=== PATIENT | male | born 1975 | race Caucasian/White ===

== ENCOUNTER → 2017-09-04 18:20 | Outpatient (CLI) | payer MEDICAID, SELFPAY ==
[2017-09-04 19:14] LABS: Hematocrit 41.7 % (40-54); Hemoglobin 14.1 g/dl (13.0-16.5); Mean Corp Hgb Conc 33.8 g/gl (32-36); Mean Corpuscular Hgb 32.4 pg (27.0-32.0); Mean Corpuscular Volume 95.9 fL (80-94); Platelet Count 210 K/mm3 (150-450); RBC Distribution Width CV 12.6 % (11.6-14.6); RBC Distribution Width SD 44.2 fl (35.1-43.9); Red Blood Count 4.35 M/mm3 (4.6-6.2); Scan Indicated on CBC? Y/N NO; White Blood Count 8.3 K/mm3 (4.4-11.0)
[2017-09-04 19:43] LABS: ALB/GLOB Ratio 1.2 RATIO (0.9-2.4); AST(SGOT) 26 U/L (15-37); Alanine Aminotransfer ALT/SGPT 50 U/L (16-61); Albumin, Serum 3.6 g/dL (3.2-5.0); Alkaline Phosphatase 103 U/L (45-117); Anion Gap 7 (5-15); BUN 19 mg/dL (7-18); BUN/Creat Ratio 17.6 RATIO (10-20); Calcium,Total 8.9 mg/dL (8.5-10.1); Chloride 110 mmol/L (98-107); Creatinine, Serum 1.08 mg/dL (0.70-1.30); EST Glomerular Filtration Rate 81 mL/min (>60); Est Glom Filt Rate - Afr Amer 98 mL/min (>60); Glucose 86 mg/dL (70-110); Potassium 3.9 mmol/L (3.5-5.1); Protein, Total 6.6 g/dL (6.4-8.2); Sodium Level 147 mmol/L (136-145); T4 Free Direct 0.71 ng/dL (0.76-1.46); Thyroid Stim Hormone (TSH) 2.61 uIU/mL (0.358-3.74)
== END ==
PROVIDERS: Family Provider Family Medicine Geriatric Medicine; PCP Family Medicine Geriatric Medicine; Visit Provider Psychiatry & Neurology Child & Adolescent Psychiatry
DX: F31.9 Bipolar disorder, unspecified (principal); F41.9 Anxiety disorder, unspecified
CPT/HCPCS: 36415; 80053; 80178; 84439; 84443; 85027

== ENCOUNTER → 2018-01-28 09:02 | Outpatient (CLI) | payer MEDICAID, SELFPAY ==
[2018-01-28 11:19] LABS: Absolute Lymphocyte Count 1.66 X10^3/ul (0.83-4.51); Absolute Neutrophil Count 6.3 X10^3/uL (2.0-7.7); Basophil# 0.02 X10^3/uL; Basophil% 0.2 % (0-1); Eosinophil# 0.21 X10^3/uL; Eosinophils% 2.4 % (0-5); Hematocrit 43.6 % (40-54); Hemoglobin 15.1 g/dl (13.0-16.5); Lymphocyte # 1.66 X10^3/ul (4.0); Lymphocyte % 18.6 % (19-41); Mean Corp Hgb Conc 34.6 g/gl (32-36); Mean Corpuscular Hgb 31.9 pg (27.0-32.0); Mean Corpuscular Volume 92.2 fL (80-94); Monocyte# 0.74 X10^3/uL; Monocyte% 8.3 % (0-10); Neutrophil # 6.29 X10^3/uL (2.7-7.7); Neutrophil % 70.4 % (47-70); Platelet Count 236 K/mm3 (150-450); RBC Distribution Width CV 12.3 % (11.6-14.6); RBC Distribution Width SD 41.1 fl (35.1-43.9); Red Blood Count 4.73 M/mm3 (4.6-6.2); White Blood Count 8.9 K/mm3 (4.4-11.0)
[2018-01-28 11:20] LABS: POSITIVE COUNT NO; POSITIVE DIFFERENTIAL NO; POSITIVE MORPHOLOGY NO
[2018-01-28 11:49] LABS: Vitamin D,25 Hydroxy 24.2 ng/mL (29.95-100.01)
[2018-01-28 11:50] LABS: ALB/GLOB Ratio 1.1 RATIO (0.9-2.4); AST(SGOT) 21 U/L (15-37); Alanine Aminotransfer ALT/SGPT 41 U/L (16-61); Albumin, Serum 3.7 g/dL (3.2-5.0); Alkaline Phosphatase 121 U/L (45-117); Anion Gap 8 (5-15); BUN 18 mg/dL (7-18); BUN/Creat Ratio 17.5 RATIO (10-20); Calcium,Total 9.1 mg/dL (8.5-10.1); Chloride 105 mmol/L (98-107); Cholesterol 188 mg/dL (200); Creatinine, Serum 1.03 mg/dL (0.70-1.30); EST Glomerular Filtration Rate 85 mL/min (>60); Est Glom Filt Rate - Afr Amer 103 mL/min (>60); Globulin 3.5 g/dL (2.2-4.2); Glucose 91 mg/dL (74-106); High Density Lipoprotein 56 mg/dL; Protein, Total 7.2 g/dL (6.4-8.2); Sodium Level 138 mmol/L (136-145); Thyroid Stim Hormone (TSH) 2.91 uIU/mL (0.358-3.74); Triglycerides 203 mg/dL; Very Low Density Lipoprotein 41 mg/dL (5-40)
== END ==
LOC: POLAB3 09:03 → LAB 10:28
PROVIDERS: Family Provider Family Medicine Geriatric Medicine; PCP Family Medicine Geriatric Medicine; Visit Provider Family Medicine Geriatric Medicine
DX: R53.83 Other fatigue (principal); E55.9 Vitamin D deficiency, unspecified
CPT/HCPCS: 36415; 80053; 80061; 82306; 84443; 85025

== ENCOUNTER → 2018-03-30 10:34 | Outpatient (CLI) | payer MEDICAID, SELFPAY ==
[2018-03-30 13:36] LABS: Hematocrit 45.9 % (40-54); Hemoglobin 15.6 g/dl (13.0-16.5); Mean Corpuscular Hgb 32.2 pg (27.0-32.0); Mean Corpuscular Volume 94.6 fL (80-94); Mean Platelet Vol. 10.4 fl (6.2-12.0); Platelet Count 267 K/mm3 (150-450); RBC Distribution Width CV 12.9 % (11.6-14.6); RBC Distribution Width SD 43.6 fl (35.1-43.9); Red Blood Count 4.85 M/mm3 (4.6-6.2); White Blood Count 8.4 K/mm3 (4.4-11.0)
[2018-03-30 13:38] LABS: Scan Indicated on CBC? Y/N NO
[2018-03-30 13:58] LABS: ALB/GLOB Ratio 1.2 RATIO (0.9-2.4); AST(SGOT) 20 U/L (15-37); Alanine Aminotransfer ALT/SGPT 45 U/L (16-61); Albumin, Serum 4.1 g/dL (3.2-5.0); Alkaline Phosphatase 132 U/L (45-117); Anion Gap 11 (5-15); BUN 15 mg/dL (7-18); BUN/Creat Ratio 12.4 RATIO (10-20); Calcium,Total 9.7 mg/dL (8.5-10.1); Chloride 113 mmol/L (98-107); Creatinine, Serum 1.21 mg/dL (0.70-1.30); EST Glomerular Filtration Rate 71 mL/min (>60); Est Glom Filt Rate - Afr Amer 85 mL/min (>60); Globulin 3.4 g/dL (2.2-4.2); Glucose 82 mg/dL (74-106); Potassium 4.2 mmol/L (3.5-5.1); Protein, Total 7.5 g/dL (6.4-8.2); Sodium Level 151 mmol/L (136-145)
== END ==
PROVIDERS: Family Provider Family Medicine Geriatric Medicine; PCP Family Medicine Geriatric Medicine; Visit Provider Family Medicine Geriatric Medicine
DX: Z51.81 Encounter for therapeutic drug level monitoring (principal); F31.9 Bipolar disorder, unspecified
CPT/HCPCS: 36415; 80053; 80178; 85027

== ENCOUNTER → 2018-04-02 12:27 | Outpatient (CLI) | payer MEDICAID, SELFPAY ==
[2018-04-02 17:56] LABS: Anion Gap 8 (5-15); BUN 14 mg/dL (7-18); BUN/Creat Ratio 12.7 RATIO (10-20); Calcium,Total 9.3 mg/dL (8.5-10.1); Chloride 107 mmol/L (98-107); EST Glomerular Filtration Rate 79 mL/min (>60); Est Glom Filt Rate - Afr Amer 95 mL/min (>60); Glucose 75 mg/dL (74-106); Potassium 4.3 mmol/L (3.5-5.1); Sodium Level 141 mmol/L (136-145)
[2018-04-02 18:27] LABS: Urine Sodium 24 mmol/L (Not Establ.)
[2018-04-02 19:31] LABS: Osmolality, Serum 298 mOsm/KG (275-295)
[2018-04-02 20:19] LABS: Osmolality, Urine 161 mOsm/KG
== END ==
PROVIDERS: Family Provider Family Medicine Geriatric Medicine; PCP Family Medicine Geriatric Medicine; Visit Provider Family Medicine Geriatric Medicine
DX: E87.0 Hyperosmolality and hypernatremia (principal)
CPT/HCPCS: 36415; 80048; 83930; 83935; 84300

== ENCOUNTER 2018-07-26 08:27 | Emergency (ER) | payer MEDICAID, SELFPAY ==
[2018-07-26 08:28] VITALS: BP 126/94; PULSE 101; RESP 15; TEMP 37; O2SAT 97; BMI 19.7
--- NOTE | 2018-07-26 08:52 | ED.VISSUMM ---
- ER Visit Summary Date of Service: 07/26/18 Chief Complaint: [] Seizure x2 today History of Present Illness: The patient is a 42 M [] history of seizure disorder, mental retardation autism mental function at third grade level per family, he had a seizure at the residential that consisted of jerking episodes, that abated with a very short period of time per medics were called he was back to baseline, family was called he was taken home and at home per the father had another episode where he had whole body shaking typical of his usual seizures he did not fall or injure himself again this lasted for a very brief period time 1 or 2 minutes he was brought to the hospital, Due to his mental capabilities he is unable to verbalize any complaints he has not been ill in any way he has had no fever no cough no trauma no obvious change in any of his status all the meds are the same he is currently on Dilantin which has been on for some time his levels been therapeutic he is missed no doses, he had a prior extensive workup for the seizures with neurology including multiple brain scans lab test etc. he seen by Dr. Griffith and Dr. Lazcano of neurology Physical Examination: [] Afebrile 130/80 resting currently in the bed General, no distress resting comfortably he is nonverbal he is looking about he is in no distress HEENT is generally unremarkable The neck is supple no adenopathy Cardiovascular, regular rate and rhythm Lungs, clear bilateral Abdomen, soft nontender Extremities, no clubbing cyanosis or edema Neurologic, awake alert appropriately moving all 4 extremities, per the family he is at his baseline general health status and neurologic status Patient's lab studies reveal white count of 14,000, chemistry and UA unremarkable except creatinine slightly elevated 1.4 he has received IV fluids, chest x-ray per radiology shows what appears to be a very subtle infiltrate right base see that report Discussed the case with Dr. Duque, and the family, the family are comfortable taking him home I discussed the process of treat him with oral antibiotics, potentially using rectal Valium per Dr. wells's instructions and following up with the office and they agreed and would prefer to take him home for outpatient management he was given the first dose of Levaquin here in the department he will continue all his other outpatient management return for change in symptoms Test Results: [] Is not they will use a rectal Valium on a as needed basis should he have seizures Emergency Department Course and Treatment: [] Reevaluation is resting comfortably in the bed drinking sitting up no distress Treatment Plan: [] Disposition: [] Home stable Impression: [] Recurrent seizure with history of seizure disorder, right lower lobe pneumonia, history of mental retardation This note was generated with [facility] dictation software. It may contain incorrect words, spelling, and punctuation that were not noted in review of the chart prior to signing ED Disposition - Plan for ED Patient: Chief Complaint: Seizure Referrals: Herbie Rucker Chi, MD [Primary Care Provider] -
--- NOTE | 2018-07-26 09:30 | ED.RN ---
FULL BODY SEIZURE NOTED APPROX 30 SEC. SAFETY MAINTAINED. FAMILY AND CAREGIVER AT BEDSIDE. PT AGITATED POST SEIZURE. DR ZAVALA NOTIFIED. ATIVAN GIVEN POST IV INSERTION.
[2018-07-26] MEDS: LORazepam 2 MG/ML Syringe IV (09:32)
[2018-07-26 09:37] VITALS: PULSE 104; RESP 18; O2SAT 99
[2018-07-26 09:42] LABS: Absolute Lymphocyte Count 1.69 X10^3/ul (0.83-4.51); Absolute Neutrophil Count 10.7 X10^3/uL (2.0-7.7); Basophil# 0.03 X10^3/uL; Basophil% 0.2 % (0-1); Eosinophil# 0.21 X10^3/uL; Eosinophils% 1.5 % (0-5); Hematocrit 42.4 % (40-54); Hemoglobin 14.6 g/dl (13.0-16.5); Lymphocyte # 1.69 X10^3/ul (4.0); Lymphocyte % 12.1 % (19-41); Mean Corp Hgb Conc 34.4 g/gl (32-36); Mean Platelet Vol. 9.7 fl (6.2-12.0); Monocyte# 1.39 X10^3/uL; Monocyte% 9.9 % (0-10); Neutrophil # 10.68 X10^3/uL (2.7-7.7); Neutrophil % 76.2 % (47-70); POSITIVE COUNT NO; POSITIVE DIFFERENTIAL NO; POSITIVE MORPHOLOGY NO; Platelet Count 226 K/mm3 (150-450); RBC Distribution Width CV 12.7 % (11.6-14.6); RBC Distribution Width SD 43.3 fl (35.1-43.9); Red Blood Count 4.56 M/mm3 (4.6-6.2)
[2018-07-26 10:02] LABS: Anion Gap 15 (5-15); BUN 13 mg/dL (7-18); BUN/Creat Ratio 9.6 RATIO (10-20); Calcium,Total 9.4 mg/dL (8.5-10.1); Chloride 107 mmol/L (98-107); Creatinine, Serum 1.36 mg/dL (0.70-1.30); EST Glomerular Filtration Rate 62 mL/min (>60); Est Glom Filt Rate - Afr Amer 74 mL/min (>60); Estimated Creatinine Clearance 58.37 ml/min; Glucose 114 mg/dL (74-106); Potassium 3.6 mmol/L (3.5-5.1); Sodium Level 143 mmol/L (136-145)
[2018-07-26 10:04] LABS: Phenytoin (Dilantin) Level 13.2 mL (10.0-20.0)
--- NOTE | 2018-07-26 10:30 | RAD_ITS ---
STUDY: X-RAY CHEST REASON FOR EXAM: Male, 42 years old. Shortness of breath, seizure TECHNIQUE: AP COMPARISON: None. FINDINGS: Parenchymal opacity in the right lung base is asymmetric to the left side. Lungs are generally hypoinflated. There is no demonstrated pleural abnormality. Normal size heart. Normal mediastinum and danii. Normal visualized pulmonary arteries. Normal visualized aortic arch and descending thoracic aorta. No acute bony process. There is no demonstrated abnormality of the visualized soft tissue structures of the upper abdomen. RAD/Chest 1 View (Portable) IMPRESSION: Right lung base parenchymal opacity could represent atelectasis versus pneumonia, including aspiration type. No cavitating process demonstrated, however. Electronically Signed: Olivier Freitas MD at 10:53 EST , Service support ,
[2018-07-26 11:03] VITALS: PULSE 102; RESP 14; O2SAT 97
[2018-07-26 11:03] LABS: Bacteria 0 SEEN /hpf (None Seen); Mucous, Urine 0 SEEN /hpf (<or=2+); Red Blood Cells-Urine 0 SEEN /hpf (0-5); Squamous Epithelial Cells - UA 0 SEEN /hpf (0-5); White Blood Cells 0 SEEN /hpf (0-5)
[2018-07-26] MEDS: 0.9% Normal Saline 1,000 ML 999 ML IV (11:03)
[2018-07-26 11:09] LABS: Color, Urine Straw (Yellow); Glucose, Dipstick Normal (Normal); Ketone-Dipstick Negative (Negative); Leukocyte Esterase-Dipstick Negative /ul (Negative); Nitrite-Dipstick Negative (Negative); Occult Blood-Urine Negative /ul (Negative); Protein-Dipstick Negative (Negative); Specific Gravity, Urine 1.005 (1.002-1.030); Urine Bilirubin Dipstick Negative (Negative); Urine Clarity Clear (Clear); Urine Urobilinogen Normal (Normal)
[2018-07-26 11:55] VITALS: PULSE 93; RESP 12; O2SAT 97
--- NOTE | 2018-07-26 11:58 | ED.DEP ---
ED Disposition - Plan for ED Patient: Chief Complaint: Seizure Instructions: Pneumonia Treatment, ED Seizure Recurrent Prescriptions: Diazepam [Valium] 5 mg RECTALLY PRN PRN #10 tab PRN Reason: Seizure Levofloxacin 750 mg PO DAILY #10 tab Referrals: Herbie Rucker Chi, MD [Primary Care Provider] -
[2018-07-26] MEDS: levoFLOXacin 750 MG Tablet PO (12:16)
[2018-07-26 12:21] VITALS: BP 142/108; PULSE 112; RESP 18; O2SAT 97
--- NOTE | 2018-07-26 12:22 | ED.RN ---
REVIEWED D/C INSTRUCTIONS, FOLLOW UP CARE, PRESCRIPTIONS, AND S/S THAT WOULD WARRANT A RETURN TO THE ED WITH PT GUARDIAN AND FAMILY. BOTH VERBALIZED AN UNDERSTANDING AND DENY FURTHER QUESTIONS FOR THIS RN. PT SKIN P/W/D, RESP EVEN AND UNLABORED, PT BEHAVIOR AT BASELINE, NO DISTRESS NOTED. PT AMBULATED OUT OF ED, GAIT STEADY.
== END 2018-07-26 12:23 | disposition home or self-care (01) ==
LOC: ED 09:26
PROVIDERS: Emergency Provider Emergency Medicine; Family Provider Family Medicine Geriatric Medicine; PCP Family Medicine Geriatric Medicine
DX: G40.909 Epilepsy, unspecified, not intractable, without status epilepticus (principal); J18.9 Pneumonia, unspecified organism; F79 Unspecified intellectual disabilities; F84.0 Autistic disorder
CPT/HCPCS: 71045; 80048; 80185; 81001; 85025; 93005; 96361; 96365; 96375; 99285; J7030; J7050; A4216

== ENCOUNTER → 2018-08-20 13:03 | Outpatient (CLI) | payer MEDICAID, SELFPAY ==
[2018-07-26 08:28] VITALS: BMI 19.7
--- NOTE | 2018-08-20 13:00 | SP.MBSS_ITS ---
PRIMARY / SECONDARY DIAGNOSIS: Dysphagia REFERRING PHYSICIAN: Dr. Rucker CURRENT DIET: regular textures cut into bite-size pieces/thin liquids DENTITION: present MENTAL STATUS: profound mental retardation, able to participate sufficiently w/ encouragement RESPIRATORY STATUS: oxygenating on room air PREVIOUS MODIFIED BARIUM SWALLOW STUDY: n/a REASON FOR REFERRAL: Parents report that the patient was brought to the ED in July 2018 d/t seizure disorder and a chest x-ray showed possible pneumonia in his right lung base. Parents/caregiver report that the patient ?chugs and shovels? his food and drinks w/ insufficient chewing at times, but deny any regular coughing/choking or history of pneumonia or unexplained weight loss. MEDICAL HISTORY: profound mental retardation, hypokalemia, hyponatremia, seizure disorder; patient was accompanied by his mother/father & caregiver who served as primary informants STUDY FINDINGS: Patient participated in a Modified Barium Swallow (MBS) study on 08/20/2018. Dr. Crouch was the radiologist present for this evaluation. This study was recorded in the lateral view and images were sent to PACs for storage. The following consistencies were presented to this patient for analysis of oropharyngeal swallow function: thin liquid, nectar thickened liquid, pudding, and a regular texture Angelina Doone shortbread cookie. Results of the MBS are as follows: PENETRATION / ASPIRATION SCALE (ARITA): 1 = does not enter airway 2 = enters airway/above vocal folds/ejected 3 = enters airway/above vocal folds/not ejected 4 = enters airway/contacts vocal folds/ejected 5 = enters airway/contacts vocal folds/not ejected 6 = enters airway/below vocal folds/ejected 7 = enters airway/below vocal folds/not ejected despite effort 8 = enters airway/below vocal folds/no effort PENETRATION / ASPIRATION SCALE (SCORE): 1. Thin liquid, sequential swallows via cup: 5 = enters airway/contacts vocal folds/not ejected 2. [place] thickened liquid, sequential swallows via cup: 1 = does not enter airway 3. Puddin = does not enter airway 4. ? Angelina Doone shortbread cookie: 1 = does not enter airway 5. Thin liquid, sequential swallows via straw: 1 = does not enter airway 6. Thin liquid, sequential swallows via straw: 1 = does not enter airway IMPRESSION ORAL PHASE CHARACTERIZED BY: LABIAL SEAL: could not view d/t forward leaning positioning of patient TONGUE CONTROL DURING BOLUS MANIPULATION: posterior escape of greater than half of bolus BOLUS PREPARATION / MASTICATION: disorganized chewing/mashing with solid pieces of bolus unchewed BOLUS TRANSPORT / LINGUAL MOTION: brisk tongue motion ORAL RESIDUE: residue collection on oral structures PHARYNGEAL PHASE CHARACTERIZED BY: INITIATION OF PHARYNGEAL SWALLOW: bolus head in pyriforms at first hyoid excursion SOFT PALATE ELEVATION: no bolus between soft palate and pharyngeal wall LARYNGEAL ELEVATION: complete superior movement of thyroid cartilage with complete approximation of arytenoids cartilage to epiglottic petiole ANTERIOR HYOID EXCURSION: partial anterior movement EPIGLOTTIC MOVEMENT: complete epiglottic inversion LARYNGEAL VESTIBULE CLOSURE AT HEIGHT OF SWALLOW: incomplete laryngeal vestibule closure with narrow column of air/contrast in laryngeal vestibule PHARYNGEAL STRIPPING WAVE: pharyngeal stripping wave present / diminished PHARYNGOESOPHAGEAL SEGMENT OPENING: complete distension and complete duration with no obstruction of flow TONGUE BASE RETRACTION: narrow column of contrast between tongue base and posterior pharyngeal wall PHARYNGEAL RESIDUE: collection of residue within or on pharyngeal structures ESOPHAGEAL PHASE CHARACTERIZED BY: ESOPHAGEAL BOLUS CLEARANCE IN THE UPRIGHT POSITION: complete clearance; esophageal coating EFFECTS OF TREATMENT STRATEGIES ATTEMPTED: Reduced rate of intake = attempted; not able to implement Use of straw = effective Cued cough = attempted; not able to implement INTERPRETATION OF RESULTS: Patient presents with moderate oropharyngeal dysphagia (R13.12). Oral phase primarily marked by mastication inefficiency (munching pattern w/ insufficient mastication time) and suboptimal lingual control w/ premature pharyngeal bolus entry. Pharyngeal phase primarily marked by delayed pharyngeal swallow onset timing resulting in suboptimal bolus location upon swallow onset. Pt utilized large volume sequential swallow consumption w/ thin liquid w/ spillage to the pyriform sinuses prior to swallow onset and subsequent laryngeal vestibule penetration to the vocal folds during the swallow without complete ejection from the laryngeal vestibule. Attempted cued cough to expel contrast unsuccessfully w/ patient stating ?cough? although unable to initiate. Mild oral residue retention post deglutition appreciated, although was able to clear w/ spontaneously initiated additional swallow. Reduced pharyngeal motility w/ residue retention w/in the valleculae/pyriforms noted d/t reduced anterior hyoid excursion w/ diminished pharyngeal stripping wave. Use a straw for thin liquid consumption was effective to ameliorate laryngeal vestibule penetration of thin liquids. RECOMMENDATIONS DIET: mechanical soft textures (finely chopped)/thin liquids COMPENSATORY STRATEGIES RECOMMENDED: Supervision w/ all PO intake, all liquids by straw (avoid large bore straws), seated upright during PO intake NEED FOR CONTINUED THERAPY: The Patient has demonstrated significant difficulty following direction with very limited benefit for extensive implementation of compensatory strategies. Patient would not benefit from direct skilled speech therapy services targeting dysphagia. Education was provided to both parents and caregiver following MBS completed w/ provision of written reinforcement of recommendations. Anticipate need for a repeat MBS w/ diet texture/liquid consistency modification if increased s/s aspiration/pneumonia are present. ADDITIONAL COMMENTS/RECOMMENDATIONS: Results and recommendations were discussed with the Patient?s parents/caregiver and images were reviewed to improve comprehension of deficits identified and need for implementation of recommended aspiration precautions immediately following MBS completion, with parents and caregiver all verbalizing understanding and agreement with all recommendations and education provided. IMAGE COUNT: [id number] Ellen Pollock M.A. CCC-DISPATCHER CH[employer]IL [address] [address] [email or web address] [phone]
--- NOTE | 2018-08-20 13:06 | RAD_ITS ---
STUDY: SWALLOWING STUDY REASON FOR EXAM: Male, 42 years old. Dysphagia. TECHNIQUE: The examination was performed with Speech Pathology in attendance. Under fluoroscopic observation, the patient ingested thin barium, thick barium, barium pudding, and barium coated cracker. FLUOROSCOPY TIME: 1:38 minutes/seconds. [id number] images were obtained. RADIOLOGIST INVOLVEMENT: Radiologist was present and providing direct supervision. COMPARISON: None. FINDINGS: The following was observed during swallowing of the various mixtures of barium: Thin Barium: Transient penetration with ingestion of thin liquids. This improves with the use of the straw. Thick Barium: There was no evidence of aspiration or laryngeal penetration. Barium Pudding: There was no evidence of aspiration or laryngeal penetration. Barium Coated Cracker: There was no evidence of aspiration or laryngeal penetration. RAD/Swallowing Function w/Video IMPRESSION: Transient penetration with ingestion of thin liquids. This improves with the use of the straw. The swallow study findings were discussed with the patient by the speech pathologist at the conclusion of the examination. Please see speech pathology report for more information and recommendations. Electronically Signed: Barrington Crouch MD at 13:45 EST Tel [phone], Service support ,
--- OUTSIDE RECORDS SUMMARY | 2018-10-25 05:58 | XMS RPT_ITS ---
:1975 Author Organization [facility] Care Team Providers Name Role Phone Chaim, Herbie Chi Primary Care Unavailable Margot Zuniga Attending Unavailable Chaim, Herbie Chi Attending Unavailable Chaim, Herbie Chi Referring Unavailable Chaim, Herbie Chi Primary Care Unavailable Chaim, Herbie Chi Primary Care Unavailable Lida Main Attending Unavailable Chaim, Herbie Chi Attending Unavailable Chaim, Herbie Chi Primary Care Unavailable Chaim, Herbie Chi Referring Unavailable Chaim, Herbie Chi Attending Unavailable Chaim, Herbie Chi Primary Care Unavailable Chaim, Herbie Chi Attending Unavailable Chaim, Herbie Chi Primary Care Unavailable PROBLEMS PROBLEMS DATE TYPE CONDITION / CODE ATTENDING STATUS SOURCE 07/26/2018 Unknown F44.5 - Jwayyed, Active [facility] disorder with Hospital seizures or Repository convulsions / F44.5(ICD-10) 03/30/2018 Unknown F31.9 - Bipolar Chaim, Herbie Chi Active [place] disorder, Community unspecified / Hospital F31.9(ICD-10) Repository 03/30/2018 Unknown Z51.81 - Chaim, Herbie Chi Active [facility] Encounter for Community therapeutic drug Hospital level monitoring Repository / Z51.81(ICD-10) 01/28/2018 Unknown E55.9 - Vitamin D Chaim, Herbie Chi Active [facility] deficiency, Community unspecified / Hospital E55.9(ICD-10) Repository 01/28/2018 Unknown R53.83 - Other Chaim, Herbie Chi Active [place] fatigue / Community R53.83(ICD-10) Hospital Repository 09/05/2017 Unknown F41.9 - Anxiety Solaro, Lida Active [place] disorder, Community unspecified / Hospital F41.9(ICD-10) Repository PROCEDURES PROCEDURES No Procedure Records FoundRESULTS RESULTS MODIFIED BARIUM Observed: 08/20/2018 Status: F Source: ESKO SWALLOW STUDY 3:20 PM [facility] HOSPITAL REPOSITORY [facility] Speech Pathology [address] [place] [address] Modified Barium Swallow Study MR#: [id number] Acct: [id number] Name: EDIN PRYOR Rep #: [id number] : 1975 42 From: Ellen Pollock M.A. CCC-ACCOUNTS OFFICER PRIMARY / SECONDARY DIAGNOSIS: Dysphagia REFERRING PHYSICIAN: Dr. Rucker CURRENT DIET: regular textures cut into bite-size pieces/thin liquids DENTITION: present MENTAL STATUS: profound mental retardation, able to participate sufficiently w/ encouragement RESPIRATORY STATUS: oxygenating on room air PREVIOUS MODIFIED BARIUM SWALLOW STUDY: n/a REASON FOR REFERRAL: Parents report that the patient was brought to the ED in July 2018 d/t seizure disorder and a chest x-ray showed possible pneumonia in his right lung base. Parents/caregiver report that the patient chugs and shovels his food and drinks w/ insufficient chewing at times, but deny any regular coughing/choking or history of pneumonia or unexplained weight loss. MEDICAL HISTORY: profound mental retardation, hypokalemia, hyponatremia, seizure disorder; patient was accompanied by his mother/father AND caregiver who served as primary informants STUDY FINDINGS: Patient participated in a Modified Barium Swallow (MBS) study on 08/20/2018. Dr. Crouch was the radiologist present for this evaluation. This study was recorded in the lateral view and images were sent to PACs for storage. The following consistencies were presented to this patient for analysis of oropharyngeal swallow function: thin liquid, nectar thickened liquid, pudding, and a regular texture Angelina Doone shortbread cookie. Results of the MBS are as follows: PENETRATION / ASPIRATION SCALE (ARITA): 1 = does not enter airway 2 = enters airway/above vocal folds/ejected 3 = enters airway/above vocal folds/not ejected 4 = enters airway/contacts vocal folds/ejected 5 = enters airway/contacts vocal folds/not ejected 6 = enters airway/below vocal folds/ejected 7 = enters airway/below vocal folds/not ejected despite effort 8 = enters airway/below vocal folds/no effort PENETRATION / ASPIRATION SCALE (SCORE): 1. Thin liquid, sequential swallows via cup: 5 = enters airway/contacts vocal folds/not ejected 2. [place] thickened liquid, sequential swallows via cup: 1 = does not enter airway 3. Puddin = does not enter airway 4. Angelina Doone shortbread cookie: 1 = does not enter airway 5. Thin liquid, sequential swallows via straw: 1 = does not enter airway 6. Thin liquid, sequential swallows via straw: 1 = does not enter airway IMPRESSION ORAL PHASE CHARACTERIZED BY: LABIAL SEAL: could not view d/t forward leaning positioning of patient TONGUE CONTROL DURING BOLUS MANIPULATION: posterior escape of greater than half of bolus BOLUS PREPARATION / MASTICATION: disorganized chewing/mashing with solid pieces of bolus unchewed BOLUS TRANSPORT / LINGUAL MOTION: brisk tongue motion ORAL RESIDUE: residue collection on oral structures PHARYNGEAL PHASE CHARACTERIZED BY: INITIATION OF PHARYNGEAL SWALLOW: bolus head in pyriforms at first hyoid excursion SOFT PALATE ELEVATION: no bolus between soft palate and pharyngeal wall LARYNGEAL ELEVATION: complete superior movement of thyroid cartilage with complete approximation of arytenoids cartilage to epiglottic petiole ANTERIOR HYOID EXCURSION: partial anterior movement EPIGLOTTIC MOVEMENT: complete epiglottic inversion LARYNGEAL VESTIBULE CLOSURE AT HEIGHT OF SWALLOW: incomplete laryngeal vestibule closure with narrow column of air/contrast in laryngeal vestibule PHARYNGEAL STRIPPING WAVE: pharyngeal stripping wave present / diminished PHARYNGOESOPHAGEAL SEGMENT OPENING: complete distension and complete duration with no obstruction of flow TONGUE BASE RETRACTION: narrow column of contrast between tongue base and posterior pharyngeal wall PHARYNGEAL RESIDUE: collection of residue within or on pharyngeal structures ESOPHAGEAL PHASE CHARACTERIZED BY: ESOPHAGEAL BOLUS CLEARANCE IN THE UPRIGHT POSITION: complete clearance; esophageal coating EFFECTS OF TREATMENT STRATEGIES ATTEMPTED: Reduced rate of intake = attempted; not able to implement Use of straw = effective Cued cough = attempted; not able to implement INTERPRETATION OF RESULTS: Patient presents with moderate oropharyngeal dysphagia (R13.12). Oral phase primarily marked by mastication inefficiency (munching pattern w/ insufficient mastication time) and suboptimal lingual control w/ premature pharyngeal bolus entry. Pharyngeal phase primarily marked by delayed pharyngeal swallow onset timing resulting in suboptimal bolus location upon swallow onset. Pt utilized large volume sequential swallow consumption w/ thin liquid w/ spillage to the pyriform sinuses prior to swallow onset and subsequent laryngeal vestibule penetration to the vocal folds during the swallow without complete ejection from the laryngeal vestibule. Attempted cued cough to expel contrast unsuccessfully w/ patient stating cough although unable to initiate. Mild oral residue retention post deglutition appreciated, although was able to clear w/ spontaneously initiated additional swallow. Reduced pharyngeal motility w/ residue retention w/in the valleculae/pyriforms noted d/t reduced anterior hyoid excursion w/ diminished pharyngeal stripping wave. Use a straw for thin liquid consumption was effective to ameliorate laryngeal vestibule penetration of thin liquids. RECOMMENDATIONS DIET: mechanical soft textures (finely chopped)/thin liquids COMPENSATORY STRATEGIES RECOMMENDED: Supervision w/ all PO intake, all liquids by straw (avoid large bore straws), seated upright during PO intake NEED FOR CONTINUED THERAPY: The Patient has demonstrated significant difficulty following direction with very limited benefit for extensive implementation of compensatory strategies. Patient would not benefit from direct skilled speech therapy services targeting dysphagia. Education was provided to both parents and caregiver following MBS completed w/ provision of written reinforcement of recommendations. Anticipate need for a repeat MBS w/ diet texture/liquid consistency modification if increased s/s aspiration/pneumonia are present. ADDITIONAL COMMENTS/RECOMMENDATIONS: Results and recommendations were discussed with the Patient s parents/caregiver and images were reviewed to improve comprehension of deficits identified and need for implementation of recommended aspiration precautions immediately following MBS completion, with parents and caregiver all verbalizing understanding and agreement with all recommendations and education provided. IMAGE COUNT: [id number] Ellen Pollock M.A. CCC-ACCOUNTS OFFICER [address] [address] [email or web address] [phone] 08/20/18 1520 <Electronically signed by Ellen Pollock M.A., CCC-ACCOUNTS OFFICER> Date Ellen Pollock M.A., CCC-ACCOUNTS OFFICER Co-Signature Required for all Medicare patients Date/Time Co-Signature CC: SWALLOWING FUNCTION Observed: 08/20/2018 Status: F Source: ESKO W/VIDEO 1:06 PM [facility] [place] [facility] Imaging Services [address] [place] [address] Swallowing Function w/Video MR#: [id number] Acct: [id number] Name: EDIN PRYOR Rep #: [id number] : 1975 M 42 From: Barrington Crouch MD PCP: Herbie Rucker MD, Chi Status: REG CLI Study: Swallowing Function w/Video Date of Exam: 08/20/18 Exam# [id number] Ordering Dr: Herbie Rucker MD STUDY: SWALLOWING STUDY REASON FOR EXAM: Male, 42 years old. Dysphagia. TECHNIQUE: The examination was performed with Speech Pathology in attendance. Under fluoroscopic observation, the patient ingested thin barium, thick barium, barium pudding, and barium coated cracker. FLUOROSCOPY TIME: 1:38 minutes/seconds. 1552 images were obtained. RADIOLOGIST INVOLVEMENT: Radiologist was present and providing direct supervision. COMPARISON: None. FINDINGS: The following was observed during swallowing of the various mixtures of barium: Thin Barium: Transient penetration with ingestion of thin liquids. This improves with the use of the straw. Thick Barium: There was no evidence of aspiration or laryngeal penetration. Barium Pudding: There was no evidence of aspiration or laryngeal penetration. Barium Coated Cracker: There was no evidence of aspiration or laryngeal penetration. RAD/Swallowing Function w/Video IMPRESSION: Transient penetration with ingestion of thin liquids. This improves with the use of the straw. The swallow study findings were discussed with the patient by the speech pathologist at the conclusion of the examination. Please see speech pathology report for more information and recommendations. Electronically Signed: Barrington Crouch MD at 13:45 EST Tel [phone], Service support , CC: Herbie Rucker MD Aircraft Power Plant Assembler: Signed EMERGENCY DEPARTMENT Observed: 07/26/2018 Status: F Source: ESKO SUMMARY 4:05 PM [facility] [place] [facility] Medical Records Department [address] [place] [address] Emergency Department Summary 07/26/18 0852 MR#: [id number] Acct: [id number] Name: EDIN PRYOR Rep #: [id number] : 1975 42 From: Margot Zuniga MD PCP: Herbie Rucker MD, Chi Status: DEP ER - ER Visit Summary Date of Service: 07/26/18 Chief Complaint: [] Seizure x2 today History of Present Illness: The patient is a 42 M [] history of seizure disorder, mental retardation autism mental function at third grade level per family, he had a seizure at the nursing home that consisted of jerking episodes, that abated with a very short period of time per medics were called he was back to baseline, family was called he was taken home and at home per the father had another episode where he had whole body shaking typical of his usual seizures he did not fall or injure himself again this lasted for a very brief period time 1 or 2 minutes he was brought to the hospital, Due to his mental capabilities he is unable to verbalize any complaints he has not been ill in any way he has had no fever no cough no trauma no obvious change in any of his status all the meds are the same he is currently on Dilantin which has been on for some time his levels been therapeutic he is missed no doses, he had a prior extensive workup for the seizures with neurology including multiple brain scans lab test etc. he seen by Dr. Griffith and Dr. Lazcano of neurology Physical Examination: [] Afebrile 130/80 resting currently in the bed General, no distress resting comfortably he is nonverbal he is looking about he is in no distress HEENT is generally unremarkable The neck is supple no adenopathy Cardiovascular, regular rate and rhythm Lungs, clear bilateral Abdomen, soft nontender Extremities, no clubbing cyanosis or edema Neurologic, awake alert appropriately moving all 4 extremities, per the family he is at his baseline general health status and neurologic status Patient's lab studies reveal white count of 14,000, chemistry and UA unremarkable except creatinine slightly elevated 1.4 he has received IV fluids, chest x-ray per radiology shows what appears to be a very subtle infiltrate right base see that report Discussed the case with Dr. Duque, and the family, the family are comfortable taking him home I discussed the process of treat him with oral antibiotics, potentially using rectal Valium per Dr. wells's instructions and following up with the office and they agreed and would prefer to take him home for outpatient management he was given the first dose of Levaquin here in the department he will continue all his other outpatient management return for change in symptoms Test Results: [] Is not they will use a rectal Valium on a as needed basis should he have seizures Emergency Department Course and Treatment: [] Reevaluation is resting comfortably in the bed drinking sitting up no distress Treatment Plan: [] Disposition: [] Home stable Impression: [] Recurrent seizure with history of seizure disorder, right lower lobe pneumonia, history of mental retardation This note was generated with [employer] dictation software. It may contain incorrect words, spelling, and punctuation that were not noted in review of the chart prior to signing ED Disposition - Plan for ED Patient: Chief Complaint: Seizure Referrals: Herbie Rucker Chi, MD [Primary Care Provider] - What to do if you have Problems For any increased pain, shortness of breath, bleeding, nausea or vomiting, chest pain, or any unexpected problems, contact your Primary Care Provider. Call [facility] ([phone]) or report to the closest Emergency Room. Call 911 if necessary. 07/26/18 2115 <Electronically signed by Margot Zuniga MD> Date Margot Zuniga MD Cosigner Signature (If Indicated): Date ____ CC: Herbie Rucker MD DISCHARGE INSTRUCTION Observed: 07/26/2018 Status: F Source: JAMAR 12:03 PM [facility] [place] [facility] Medical Records Department [address] [place] [address] Discharge Instruction 07/26/18 1158 MR#: [id number] Acct: [id number] Name: EDIN PRYOR Rep #: [id number] : 1975 42 From: Margot Zuniga MD PCP: Herbie Rucker MD, Chi Status: REG ER ED Disposition - Plan for ED Patient: Chief Complaint: Seizure Instructions: Pneumonia Treatment, ED Seizure Recurrent Prescriptions: Diazepam [Valium] 5 mg RECTALLY PRN PRN #10 tab PRN Reason: Seizure Levofloxacin 750 mg PO DAILY #10 tab Referrals: Herbie Rucker Chi, MD [Primary Care Provider] - What to do if you have Problems For any increased pain, shortness of breath, bleeding, nausea or vomiting, chest pain, or any unexpected problems, contact your Primary Care Provider. Call [facility] ([phone]) or report to the closest Emergency Room. Call 911 if necessary. 07/26/18 1203 <Electronically signed by Margot Zuniga MD> Date Margot Zuniga MD Cosigner Signature (If Indicated): Date CC: Herbie Rucker MD URINALYSIS, COMPLETE Collected: 07/26/2018 Status: F Source: JAMAR 10:55 AM [facility] [place] Order Comment: Order Date: 07/26/18 How was Urine Obtained? CLEAN CATCH TYPE CODE TESTS RESULT OUT OF RANGE REFERENCE UNITS LAB L400.3000 Yellow COLOR Normal Straw LAB L400.3050 Clear Normal CLARITY Clear LAB L400.3200 Normal mg/dl Normal GLUCOSE, UR Normal LAB L400.3300 Negative mg/dL Normal BILIRUBIN URINE Negative LAB L400.3400 Negative mg/dl Normal KETONE UR Negative LAB L400.3465 1.002-1.030 Normal SP.GR. DIPSTX 1.005 LAB L400.3550 5.0 - 8.0 pH UR Normal 7.0 LAB L400.3600 Negative mg/dl PROT Normal DIPSTX Negative LAB L400.3700 Normal mg/dl Normal UROBILI Normal LAB L400.3750 Negative Normal NITRITE UR Negative LAB L400.3780 Negative /ul Normal OCCULT BLOOD-UR Negative LAB L400.3800 Negative /ul LEUK Normal ESTERASE Negative LAB L400.4050 0-5 /hpf WBC 0 Normal SEEN LAB L400.4100 0-5 /hpf 0 Normal RBC-UA SEEN LAB L400.4150 0-5 /hpf SQUAM 0 Normal EPI SEEN LAB L400.4300 None Seen /hpf 0 Normal BACTERIA SEEN LAB L400.4350 <or=2+ /hpf 0 Normal MUCUS, URINE SEEN Performed By: #### L400.0001 #### [facility] [address] [facility] [place], [address] CBC W/DIFF, AUTOMATED Collected: 07/26/2018 Status: F Source: JAMAR 9:30 AM [facility] [place] TYPE CODE TESTS RESULT OUT OF RANGE REFERENCE UNITS LAB L100.1000 4.4-11.0 K/mm3 High WBC 14.0 LAB L100.1200 4.6-6.2 M/mm3 Low RBC 4.56 LAB L100.1300 13.0-16.5 g/dl Normal HGB 14.6 LAB L100.1400 40-54 % Normal HCT 42.4 LAB L100.1500 80-94 fL Normal MCV 93.0 LAB L100.1600 27.0-32.0 pg Normal MCH 32.0 LAB L100.1700 32-36 g/gl Normal MCHC 34.4 LAB L100.1810 11.6-14.6 % Normal RDW CV 12.7 LAB L100.1820 35.1-43.9 fl Normal RDW SD 43.3 LAB L100.1900 150-450 K/mm3 Normal PLT 226 LAB L100.2000 6.2-12.0 fl Normal MPV 9.7 LAB L100.2100 47-70 % High NEUT% 76.2 LAB L100.2200 19-41 % Low LY% 12.1 LAB L100.2300 0-10 % Normal MONO% 9.9 LAB L100.2400 0-5 % Normal EO% 1.5 LAB L100.2500 0-1 % Normal BASO% 0.2 LAB L100.2550 0.0-0.9 % Normal IM GRAN % 0.100 Result Comment: IG% - Immature Granulocytes (promyelocytes, myelocytes and metamyelocytes) > 1% indicates that a LEFT SHIFT is Present. LAB L100.2620 2.0-7.7 X10 3/uL High Absolute Neut 10.7 LAB L100.2720 0.83-4.51 X10 3/ul Normal Absolute Lymph 1.69 Performed By: #### L100.0100 #### [facility] [address] [place], [place], [address] BASIC METABOLIC Collected: 07/26/2018 Status: F Source: ESKO PROFILE ([facility]) 9:30 AM [facility] [place] TYPE CODE TESTS RESULT OUT OF RANGE REFERENCE UNITS LAB L501.0100 74-106 mg/dL High GLU 114 Result Comment: Fasting Glucose result from 100 to 125 mg/dL suggests IMPAIRED HOMEOSTASIS per A.D.A. criteria. Please note revised GLUCOSE reference range effective 2017. LAB L501.1000 7-18 mg/dL Normal BUN 13 LAB L501.1100 0.70-1.30 mg/dL High CREAT,SERUM 1.36 Result Comment: The validity of the calculated GFR AND GFRAA in patients over 70 years has not been determined. Clinical correlation is essential. LAB L501.1110 >60 mL/min Normal EST GFR 62 Result Comment: Non- GFR Calc LAB L501.1115 >60 mL/min Normal EST GFR - AA 74 Result Comment: GFR Calc LAB L501.1255 ml/min Normal Estimated CRCL 58.37 LAB L501.1300 10-20 RATIO Low BUN/CRE 9.6 LAB L501.2200 8.5-10 mg/dL Normal .1 CA 9.4 LAB L501.5300 136-14 mmol/L Normal 5 NA 143 LAB L501.5600 3.5-5. mmol/L Normal 1 K 3.6 LAB L501.5900 98-107 mmol/L Normal CL 107 LAB L501.6100 21.0-3 mmol/L Normal 2.0 CO2 21.0 LAB L501.6200 5-15 Normal GAP 15 Performed By: #### L500.2500 #### [facility] [address] [facility] [place], [address] PHENYTOIN (DILANTIN) Collected: 07/26/2018 Status: F Source: JAMAR LEVEL 9:30 AM [facility] [place] TYPE CODE TESTS RESULT OUT OF RANGE REFERENCE UNITS LAB L501.7700 10.0-20.0 mL Normal PHENYTOIN 13.2 Performed By: #### L501.7700 #### [facility] [address] [place], [address] CHEST 1 VIEW Observed: 07/26/2018 Status: F Source: JAMAR (PORTABLE) 8:52 AM [facility] [place] [facility] Imaging Services [address] [place] [address] Chest 1 View (Portable) MR#: [id number] Acct: [id number] Name: EDIN PRYOR Rep #: [id number] : 1975 M 42 From: Olivier Freitas MD PCP: Chaim SHANNON,Herbie Chi Status: REG ER Study: Chest 1 View (Portable) Date of Exam: 07/26/18 Exam# [id number] Ordering Dr: Margot Zuniga MD STUDY: X-RAY CHEST REASON FOR EXAM: Male, 42 years old. Shortness of breath, seizure TECHNIQUE: AP COMPARISON: None. FINDINGS: Parenchymal opacity in the right lung base is asymmetric to the left side. Lungs are generally hypoinflated. There is no demonstrated pleural abnormality. Normal size heart. Normal mediastinum and danii. Normal visualized pulmonary arteries. Normal visualized aortic arch and descending thoracic aorta. No acute bony process. There is no demonstrated abnormality of the visualized soft tissue structures of the upper abdomen. RAD/Chest 1 View (Portable) IMPRESSION: Right lung base parenchymal opacity could represent atelectasis versus pneumonia, including aspiration type. No cavitating process demonstrated, however. Electronically Signed: Olivier Freitas MD at 10:53 EST , Service support , CC: MD Jeffrey Zuniga; Herbie Rucker MD [employer] Power Plant Assembler: Signed BASIC METABOLIC Collected: 04/02/2018 Status: F Source: JAMAR PROFILE (B[facility]) 12:28 PM [facility] [place] TYPE CODE TESTS RESULT OUT OF RANGE REFERENCE UNITS LAB L501.0100 74-106 mg/dL Normal GLU 75 Result Comment: Please note revised GLUCOSE reference range effective 2017. LAB L501.1000 7-18 mg/dL Normal BUN 14 LAB L501.1100 0.70-1.30 mg/dL Normal CREAT,SERUM 1.10 Result Comment: The validity of the calculated GFR AND GFRAA in patients over 70 years has not been determined. Clinical correlation is essential. LAB L501.1110 >60 mL/min Normal EST GFR 79 Result Comment: Non- GFR Calc LAB L501.1115 >60 mL/min Normal EST GFR - AA 95 Result Comment: GFR Calc LAB L501.1300 10-20 RATIO Normal BUN/CRE 12.7 LAB L501.2200 8.5-10.1 mg/dL CA Normal 9.3 LAB L501.5300 136-145 mmol/L NA Normal 141 LAB L501.5600 3.5-5.1 mmol/L K Normal 4.3 Result Comment: Slight Hemolysis, Result may be falsely increased. LAB L501.5900 98-107 mmol/L Normal CL 107 LAB L501.6100 21.0-32.0 mmol/L Normal CO2 26.0 LAB L501.6200 5-15 Normal 8 GAP Performed By: #### L500.2500 #### [facility] [address] [facility] [place], [address] URINE SODIUM Collected: 04/02/2018 Status: F Source: JAMAR 12:28 PM [facility] [place] TYPE CODE TESTS RESULT OUT OF RANGE REFERENCE UNITS LAB L501.5500 Not Establ. mmol/L Normal UR NA 24 Performed By: #### L501.5500, L501.7400 #### [facility] [address] [place], [address] OSMOLALITY, URINE Collected: 04/02/2018 Status: F Source: JAMAR 12:28 PM [facility] [place] TYPE CODE TESTS RESULT OUT OF RANGE REFERENCE UNITS LAB L501.7400 mOsm/KG Normal 161 OSMOLALITY,U R Result Comment: OSMOLALITY URINE REFERENCE INTERVALS 24-hour Urine 300 - 900 mOsm/kg Random Urine 50 - 1400 mOsm/kg After 12 Hr fluid restriction >850 mOsm/kg Performed By: #### L501.5500, L501.7400 #### [facility] [address] [place], [address] OSMOLALITY, SERUM Collected: 04/02/2018 Status: F Source: JAMAR 12:28 PM [facility] [place] TYPE CODE TESTS RESULT OUT OF RANGE REFERENCE UNITS LAB L501.7300 275-295 mOsm/KG High 298 OSMOLALITY,S ER Performed By: #### L501.7300 #### [facility] [address] [place], [address] CBC-COMPLETE BLOOD CNT Collected: 03/30/2018 Status: F Source: JAMAR NO DIFF 10:36 AM [facility] [place] TYPE CODE TESTS RESULT OUT OF RANGE REFERENCE UNITS LAB L100.1000 4.4-11.0 K/mm3 Normal WBC 8.4 LAB L100.1200 4.6-6.2 M/mm3 Normal RBC 4.85 LAB L100.1300 13.0-16.5 g/dl Normal HGB 15.6 LAB L100.1400 40-54 % Normal HCT 45.9 LAB L100.1500 80-94 fL High MCV 94.6 LAB L100.1600 27.0-32.0 pg High MCH 32.2 LAB L100.1700 32-36 g/gl Normal MCHC 34.0 LAB L100.1810 11.6-14.6 % Normal RDW CV 12.9 LAB L100.1820 35.1-43.9 fl Normal RDW SD 43.6 LAB L100.1900 150-450 K/mm3 Normal PLT 267 LAB L100.2000 6.2-12.0 fl Normal MPV 10.4 Performed By: #### L100.0500 #### [facility] [address] [place], [address] COMPREHENSIVE METABOLIC Collected: 03/30/2018 Status: F Source: [facility] 10:36 AM [facility] [place] TYPE CODE TESTS RESULT OUT OF RANGE REFERENCE UNITS LAB L501.0100 74-106 mg/dL Normal GLU 82 Result Comment: Please note revised GLUCOSE reference range effective 2017. LAB L501.1000 7-18 mg/dL Normal BUN 15 LAB L501.1100 0.70-1.30 mg/dL Normal CREAT,SERUM 1.21 Result Comment: The validity of the calculated GFR AND GFRAA in patients over 70 years has not been determined. Clinical correlation is essential. LAB L501.1110 >60 mL/min Normal EST GFR 71 Result Comment: Non- GFR Calc LAB L501.1115 >60 mL/min Normal EST GFR - AA 85 Result Comment: GFR Calc LAB L501.1300 10-20 RATIO Normal BUN/CRE 12.4 LAB L501.1500 6.4-8.2 g/dL T Normal PROT 7.5 LAB L501.1800 3.2-5.0 g/dL Normal ALB 4.1 LAB L501.1950 2.2-4.2 g/dL Normal GLOB 3.4 LAB L501.2000 0.9-2.4 RATIO Normal A/G 1.2 LAB L501.2200 8.5-10.1 mg/dL CA Normal 9.7 LAB L501.4100 15-37 U/L Normal AST 20 LAB L501.4305 45-117 U/L High ALK P 132 LAB L501.4405 16-61 U/L Normal ALT 45 LAB L501.4600 0.20-1.00 mg/dL T Normal BILI 0.30 LAB L501.5300 136-145 mmol/L High NA 151 LAB L501.5600 3.5-5.1 mmol/L K Normal 4.2 LAB L501.5900 98-107 mmol/L High CL 113 LAB L501.6100 21.0-32.0 mmol/L Normal CO2 27.0 LAB L501.6200 5-15 Normal GAP 11 Performed By: #### L500.4050 #### [facility] [address] [place], [address] LITHIUM Collected: 03/30/2018 Status: F Source: [facility] 10:36 AM [facility] [place] Order Comment: Date of Last Dose: 03/29/18 Time of Last Dose: 2200 TYPE CODE TESTS RESULT OUT OF RANGE REFERENCE UNITS LAB L501.9060 0.60-1.20 mmol/L Normal LI 1.20 Performed By: #### L501.9060 #### [facility] [address] [place], [address] CBC W/DIFF, AUTOMATED Collected: 01/28/2018 Status: F Source: [facility] 10:33 AM [facility] [place] TYPE CODE TESTS RESULT OUT OF RANGE REFERENCE UNITS LAB L100.1000 4.4-11.0 K/mm3 Normal WBC 8.9 LAB L100.1200 4.6-6.2 M/mm3 Normal RBC 4.73 LAB L100.1300 13.0-16.5 g/dl Normal HGB 15.1 LAB L100.1400 40-54 % Normal HCT 43.6 LAB L100.1500 80-94 fL Normal MCV 92.2 LAB L100.1600 27.0-32.0 pg Normal MCH 31.9 LAB L100.1700 32-36 g/gl Normal MCHC 34.6 LAB L100.1810 11.6-14.6 % Normal RDW CV 12.3 LAB L100.1820 35.1-43.9 fl Normal RDW SD 41.1 LAB L100.1900 150-450 K/mm3 Normal PLT 236 LAB L100.2000 6.2-12.0 fl Normal MPV 10.0 LAB L100.2100 47-70 % High NEUT% 70.4 LAB L100.2200 19-41 % Low LY% 18.6 LAB L100.2300 0-10 % Normal MONO% 8.3 LAB L100.2400 0-5 % Normal EO% 2.4 LAB L100.2500 0-1 % Normal BASO% 0.2 LAB L100.2550 0.0-0.9 % Normal IM GRAN % 0.100 Result Comment: IG% - Immature Granulocytes (promyelocytes, myelocytes and metamyelocytes) > 1% indicates that a LEFT SHIFT is Present. LAB L100.2620 2.0-7.7 X10 3/uL Normal Absolute Neut 6.3 LAB L100.2720 0.83-4.51 X10 3/ul Normal Absolute Lymph 1.66 Performed By: #### L100.0100 #### [facility] [address] [facility] [place], [place], [address] VITAMIN D,25 HYDROXY Collected: 01/28/2018 Status: F Source: [facility] 10:33 AM [facility] [place] TYPE CODE TESTS RESULT OUT OF REFERENCE UNITS RANGE LAB L506.1000 29.95-100.01 ng/mL Low Vitamin D 24.2 25-OH Result Comment: Vitamin D 25(OH) Status Range Deficiency <20 ng/mL (50nmol/L) Insuffciency 20 - 30 ng/mL (50 - 75 nmol/L) Sufficiency 30 - 100 ng/mL (75 - 250 nmol/L) Toxicity >100 ng/mL (>250 nmol/L) Performed By: #### L506.1000 #### [facility] [address] [facility] [place], [place], [address] COMPREHENSIVE METABOLIC Collected: 01/28/2018 Status: F [facility] AM [facility] [place] TYPE CODE TESTS RESULT OUT OF RANGE REFERENCE UNITS LAB L501.0100 74-106 mg/dL Normal GLU 91 Result Comment: Please note revised GLUCOSE reference range effective 2017. LAB L501.1000 7-18 mg/dL Normal BUN 18 LAB L501.1100 0.70-1.30 mg/dL Normal CREAT,SERUM 1.03 Result Comment: The validity of the calculated GFR AND GFRAA in patients over 70 years has not been determined. Clinical correlation is essential. LAB L501.1110 >60 mL/min Normal EST GFR 85 Result Comment: Non- GFR Calc LAB L501.1115 >60 mL/min Normal EST GFR - AA 103 Result Comment: GFR Calc LAB L501.1300 10-20 RATIO Normal BUN/CRE 17.5 LAB L501.1500 6.4-8.2 g/dL T Normal PROT 7.2 LAB L501.1800 3.2-5.0 g/dL Normal ALB 3.7 LAB L501.1950 2.2-4.2 g/dL Normal GLOB 3.5 LAB L501.2000 0.9-2.4 RATIO Normal A/G 1.1 LAB L501.2200 8.5-10.1 mg/dL CA Normal 9.1 LAB L501.4100 15-37 U/L Normal AST 21 LAB L501.4305 45-117 U/L High ALK P 121 LAB L501.4405 16-61 U/L Normal ALT 41 LAB L501.4600 0.20-1.00 mg/dL T Normal BILI 0.20 LAB L501.5300 136-145 mmol/L NA Normal 138 LAB L501.5600 3.5-5.1 mmol/L K Normal 4.0 LAB L501.5900 98-107 mmol/L CL Normal 105 LAB L501.6100 21.0-32.0 mmol/L Normal CO2 25.0 LAB L501.6200 5-15 Normal GAP 8 Performed By: #### L500.4050, L500.4100, L501.9520 #### [facility] [address] [place], [place], [address] LIPID PROFILE Collected: 01/28/2018 Status: F Source: [facility] 10:33 AM [facility] [place] TYPE CODE TESTS RESULT OUT OF RANGE REFERENCE UNITS LAB L501.4900 200 mg/dL Normal CHOL 188 Result Comment: <200 mg/dL Desirable 200-240 mg/dL Borderline >240 mg/dL High Risk LAB L501.5000 mg/dL High TRIG 203 Result Comment: The drugs N-Acetylcysteine and Metamizole may falsely depress this assay. Serum Triglycerides Reference Interval Normal <150 mg/dL Borderline high 150 - 199 mg/dL High 200 - 499 mg/dL Very High > or = 500 mg/dL LAB L501.6400 mg/dL Normal HDL 56 Result Comment: The drugs N-Acetylcysteine and Metamizole may falsely depress this assay. Reference Range HDL <40 mg/dL Low HDL Cholesterol HDL >or= 60 mg/dL High HDL Cholesterol LAB L501.6500 0-130 mg/dL Normal LDL 91 LAB L501.6600 5-40 mg/dL High VLDL 41 Performed By: #### L500.4050, L500.4100, L501.9520 #### [facility] [address] [facility] [place], [place], [address] THYROID STIM HORMONE Collected: 01/28/2018 Status: F Source: [facility] ([facility]) 10:33 AM [facility] [place] TYPE CODE TESTS RESULT OUT OF RANGE REFERENCE UNITS LAB L501.9520 0.358-3.74 uIU/mL Normal TSH 2.91 Performed By: #### L500.4050, L500.4100, L501.9520 #### [facility] [address] [place] [place], [address] CBC-COMPLETE BLOOD CNT Collected: 09/04/2017 Status: F Source: [facility] NO DIFF 6:36 PM [facility] [place] TYPE CODE TESTS RESULT OUT OF RANGE REFERENCE UNITS LAB L100.1000 4.4-11.0 K/mm3 Normal WBC 8.3 LAB L100.1200 4.6-6.2 M/mm3 Low RBC 4.35 LAB L100.1300 13.0-16.5 g/dl Normal HGB 14.1 LAB L100.1400 40-54 % Normal HCT 41.7 LAB L100.1500 80-94 fL High MCV 95.9 LAB L100.1600 27.0-32.0 pg High MCH 32.4 LAB L100.1700 32-36 g/gl Normal MCHC 33.8 LAB L100.1810 11.6-14.6 % Normal RDW CV 12.6 LAB L100.1820 35.1-43.9 fl High RDW SD 44.2 LAB L100.1900 150-450 K/mm3 Normal PLT 210 LAB L100.2000 6.2-12.0 fl Normal MPV 10.0 Performed By: #### L100.0500 #### [facility] [address] [place], [address] COMPREHENSIVE METABOLIC Collected: 09/04/2017 Status: F Source: [facility] 6:36 PM [facility] [place] Order Comment: Has Patient had X-rays with Contrast this admission? N Is Patient on Heparin? N TYPE CODE TESTS RESULT OUT OF RANGE REFERENCE UNITS LAB L501.0100 70-110 mg/dL Normal GLU 86 LAB L501.1000 7-18 mg/dL High BUN 19 LAB L501.1100 0.70-1.30 mg/dL Normal 1.08 CREAT,SERUM Result Comment: The validity of the calculated GFR AND GFRAA in patients over 70 years has not been determined. Clinical correlation is essential. LAB L501.1110 >60 mL/min Normal EST GFR 81 Result Comment: Non- GFR Calc LAB L501.1115 >60 mL/min Normal EST GFR - AA 98 Result Comment: GFR Calc LAB L501.1300 10-20 RATIO Normal BUN/CRE 17.6 LAB L501.1500 6.4-8.2 g/dL T Normal PROT 6.6 LAB L501.1800 3.2-5.0 g/dL Normal ALB 3.6 LAB L501.1950 2.2-4.2 g/dL Normal GLOB 3.0 LAB L501.2000 0.9-2.4 RATIO Normal A/G 1.2 LAB L501.2200 8.5-10.1 mg/dL CA Normal 8.9 LAB L501.4100 15-37 U/L Normal AST 26 LAB L501.4305 45-117 U/L Normal ALK P 103 LAB L501.4405 16-61 U/L Normal ALT 50 Result Comment: Please note revised ALT reference range effective 2017. LAB L501.4600 0.20-1.00 mg/dL Low T BILI 0.10 LAB L501.5300 136-145 mmol/L High NA 147 LAB L501.5600 3.5-5.1 mmol/L Normal K 3.9 LAB L501.5900 98-107 mmol/L High CL 110 LAB L501.6100 21.0-32.0 mmol/L Normal CO2 30.0 LAB L501.6200 5-15 Normal GAP 7 Performed By: #### L500.4050, L501.9520, L506.0400 #### [facility] [address] [place], [address] THYROID STIM HORMONE Collected: 09/04/2017 Status: F Source: [facility] (T[facility]) 6:36 PM [facility] [place] Order Comment: Has Patient had X-rays with Contrast this admission? N Is Patient on Heparin? N TYPE CODE TESTS RESULT OUT OF RANGE REFERENCE UNITS LAB L501.9520 0.358-3.74 uIU/mL Normal TSH 2.61 Performed By: #### L500.4050, L501.9520, L506.0400 #### [facility] [address], [address] T4 FREE DIRECT Collected: 09/04/2017 Status: F Source: [facility] 6:36 PM [facility] [place] Order Comment: Has Patient had X-rays with Contrast this admission? N Is Patient on Heparin? N TYPE CODE TESTS RESULT OUT OF REFERENCE UNITS RANGE LAB L506.0400 0.76-1.46 ng/dL Low T4 FREE 0.71 DIRECT Performed By: #### L500.4050, L501.9520, L506.0400 #### [facility] [address] [place], [place], [address] LITHIUM Collected: 09/04/2017 Status: F Source: [facility] 6:36 PM [facility] [place] Order Comment: Date of Last Dose: 09/04/17 Time of Last Dose: 0700 TYPE CODE TESTS RESULT OUT OF RANGE REFERENCE UNITS LAB L501.9060 0.60-1.20 mmol/L Normal LI 1.00 Performed By: #### L501.9060 #### [facility] [address] [place], [address] ALLERGIES ALLERGIES DATE TYPE / CODE NAME / CODE REACTION SEVERITY SOURCE 07/26/2018 Drug No Known Unknown Jamar [facility] Allergy/4160 Allergies/F00 Hospital 35842(SNOMED 9841969(RXNOR Repository CT) M) ENCOUNTERS ENCOUNTERS ADMIT/DISCHARGE ACCOUNT ADMITTING ENCOUNTER LOCATION SOURCE NUMBER CLASS 08/20/2018 [id number] [place] 1 [facility] ing:RAD Repository 07/26/2018/ [id number] Emergency Jamar [facility] 8 1 [facility] ing:ED Repository 04/02/2018 [id number] Ambulatory [place] 2 [facility] ing:POLAB3 Repository 03/30/2018 [id number] Ambulatory [place] 4 [facility] ing:POLAB3 Repository 01/28/2018 [id number] Amb[place] 2 [facility] ing:LAB Repository 09/04/2017 [id number] Ambulatory [place] 4 [facility] ing:LAB Repository PAYERS PAYERS ENCOUNTER GUARANTOR PAYER SUBSCRIBER SOURCE 08/20/2018 EDIN Roldan [id number] Insurance:MEDICAIDPol BERGOLCDOB: [facility] ic Number: [id number] [id number] Repository 98380Xwk: ([phone]) Date:2018-08-12 [phone] () 08/20/2018 Secondary NOT GIVENUNK [place] Insurance:SELF PAY [facility] Number: Effective Repository Date:2018-08-12 07/26/2018 EDIN Primary EDIN Roldan [id number] Insurance:MEDICAIDPol BERGOLCDOB: [facility] icy Number: [id number], [place] [id number] Repository 71169Xiw: (234) Date:2018-07-26 [phone] () 07/26/2018 Secondary NOT GIVENUNK Jamar Insurance:SELF PAY [facility] Number: Effective Repository Date:2018-07-26 04/02/2018 Edin [id number] Insurance:MEDICAIDPol BergolcDOB: [facility] icy Number: [id number], [place] [id number] Repository 33943Vzr: (234) Date:2018-04-02 [phone] () 04/02/2018 Secondary NOT GIVENUNK [place] Insurance:SELF PAY [facility]: Effective Repository Date:2018-04-02 03/30/2018 Edin Roldan [id number] Insurance:MEDICAIDPol BergolcDOB: [facility] icy Number: [id number], [place] [id number] Repository [address]673Tab: (234) Date:2018-03-30 [phone] () 03/30/2018 Secondary NOT GIVENUNK [place] Insurance:SELF PAY [facility] Number: Effective Repository Date:2018-03-30 01/28/2018 Edin Roldan [id number] Insurance:MEDICAIDPol BergolcDOB: [facility] [place] ic Number: [id number], [place] [id number] Repository 87483Aoj: ([phone]) Date:2018-01-28 [phone] () 01/28/2018 Secondary NOT GIVENUNK [place] Insurance:SELF PAY [facility] Number: Effective Repository Date:2018-01-28 09/04/2017 Edin Roldan [id number] Insurance:MEDICAIDPol BergolcDOB: [facility] [place] ic Number: [id number], [place] [id number] Repository [address]Het: ([phone]) Date:2017-09-04 [phone] () 09/04/2017 Secondary NOT GIVENUNK [place] Insurance:SELF PAY [facility] Number: Effective Repository Date:2017-09-04
== END ==
PROVIDERS: Family Provider Family Medicine Geriatric Medicine; PCP Family Medicine Geriatric Medicine; Referring Provider Family Medicine Geriatric Medicine; Visit Provider Family Medicine Geriatric Medicine
DX: R13.10 Dysphagia, unspecified (principal)
CPT/HCPCS: 74230; 92611

== ENCOUNTER → 2019-01-25 09:12 | Outpatient (CLI) | payer MEDICAID, SELFPAY ==
[2019-01-25 11:40] LABS: Hemoglobin 14.2 g/dl (13.0-16.5); Mean Corp Hgb Conc 33.8 g/gl (32-36); Mean Corpuscular Hgb 31.5 pg (27.0-32.0); Mean Corpuscular Volume 93.1 fL (80-94); Mean Platelet Vol. 10.6 fl (6.2-12.0); Platelet Count 274 K/mm3 (150-450); RBC Distribution Width CV 12.8 % (11.6-14.6); RBC Distribution Width SD 42.9 fl (35.1-43.9); Red Blood Count 4.51 M/mm3 (4.6-6.2); White Blood Count 6.3 K/mm3 (4.4-11.0)
[2019-01-25 11:44] LABS: Scan Indicated on CBC? Y/N NO
[2019-01-25 12:10] LABS: ALB/GLOB Ratio 1.2 RATIO (0.9-2.4); AST(SGOT) 23 U/L (15-37); Alanine Aminotransfer ALT/SGPT 46 U/L (16-61); Albumin, Serum 3.9 g/dL (3.2-5.0); Alkaline Phosphatase 144 U/L (45-117); Anion Gap 7 (5-15); BUN 16 mg/dL (7-18); BUN/Creat Ratio 15.4 RATIO (10-20); Calcium,Total 9.4 mg/dL (8.5-10.1); Chloride 112 mmol/L (98-107); Creatinine, Serum 1.04 mg/dL (0.70-1.30); EST Glomerular Filtration Rate 84 mL/min (>60); Est Glom Filt Rate - Afr Amer 101 mL/min (>60); Globulin 3.2 g/dL (2.2-4.2); Glucose 96 mg/dL (74-106); Potassium 4.2 mmol/L (3.5-5.1); Protein, Total 7.1 g/dL (6.4-8.2); Sodium Level 146 mmol/L (136-145); T4 Free Direct 0.66 ng/dL (0.76-1.46); Thyroid Stim Hormone (TSH) 2.61 uIU/mL (0.358-3.74)
== END ==
PROVIDERS: Psychiatry & Neurology Neurology; Family Provider Family Medicine Geriatric Medicine; PCP Family Medicine Geriatric Medicine; Visit Provider Family Medicine Geriatric Medicine
DX: F31.9 Bipolar disorder, unspecified (principal)
CPT/HCPCS: 36415; 80053; 84439; 84443; 85027

== ENCOUNTER → 2019-01-29 09:23 | Outpatient (CLI) | payer MEDICAID, SELFPAY ==
[2019-01-29 12:22] LABS: Absolute Neutrophil Count 4.6 X10^3/uL (2.0-7.7); Basophil# 0.04 X10^3/uL; Basophil% 0.6 % (0-1); Eosinophil# 0.23 X10^3/uL; Eosinophils% 3.3 % (0-5); Hemoglobin 14.3 g/dl (13.0-16.5); Lymphocyte % 20.1 % (19-41); Mean Corpuscular Hgb 31.4 pg (27.0-32.0); Mean Corpuscular Volume 92.3 fL (80-94); Mean Platelet Vol. 10.4 fl (6.2-12.0); Monocyte# 0.71 X10^3/uL; Monocyte% 10.2 % (0-10); Neutrophil # 4.59 X10^3/uL (2.7-7.7); Neutrophil % 65.7 % (47-70); Platelet Count 269 K/mm3 (150-450); RBC Distribution Width CV 12.6 % (11.6-14.6); RBC Distribution Width SD 41.7 fl (35.1-43.9); Red Blood Count 4.55 M/mm3 (4.6-6.2)
[2019-01-29 12:23] LABS: POSITIVE COUNT NO; POSITIVE DIFFERENTIAL NO; POSITIVE MORPHOLOGY NO
[2019-01-29 12:41] LABS: Vitamin D,25 Hydroxy 34.9 ng/mL (29.95-100.01)
[2019-01-29 12:51] LABS: ALB/GLOB Ratio 1.2 RATIO (0.9-2.4); AST(SGOT) 24 U/L (15-37); Alanine Aminotransfer ALT/SGPT 41 U/L (16-61); Albumin, Serum 3.8 g/dL (3.2-5.0); Alkaline Phosphatase 145 U/L (45-117); Anion Gap 7 (5-15); BUN 16 mg/dL (7-18); BUN/Creat Ratio 14.5 RATIO (10-20); Calcium,Total 9.5 mg/dL (8.5-10.1); Chloride 106 mmol/L (98-107); Cholesterol 177 mg/dL (200); EST Glomerular Filtration Rate 78 mL/min (>60); Est Glom Filt Rate - Afr Amer 95 mL/min (>60); Globulin 3.1 g/dL (2.2-4.2); Glucose 86 mg/dL (74-106); High Density Lipoprotein 57 mg/dL; Potassium 4.2 mmol/L (3.5-5.1); Protein, Total 6.9 g/dL (6.4-8.2); Sodium Level 141 mmol/L (136-145); Thyroid Stim Hormone (TSH) 1.78 uIU/mL (0.358-3.74); Triglycerides 111 mg/dL; Very Low Density Lipoprotein 22 mg/dL (5-40)
[2019-01-29 12:56] LABS: Phenytoin (Dilantin) Level 15.3 mL (10.0-20.0)
== END ==
PROVIDERS: Family Provider Family Medicine Geriatric Medicine; PCP Family Medicine Geriatric Medicine; Visit Provider Family Medicine Geriatric Medicine
DX: R53.83 Other fatigue (principal); E55.9 Vitamin D deficiency, unspecified; F31.9 Bipolar disorder, unspecified; G40.909 Epilepsy, unspecified, not intractable, without status epilepticus
CPT/HCPCS: 36415; 80053; 80061; 80178; 80185; 82306; 84443; 85025

== ENCOUNTER → 2019-06-14 09:13 | Outpatient (CLI) | payer MEDICAID, SELFPAY ==
[2019-06-14 12:24] LABS: Hematocrit 47.2 % (40-54); Hemoglobin 15.5 g/dL (13.0-16.5); Mean Corp Hgb Conc 32.8 g/dL (32-36); Mean Corpuscular Hgb 31.6 pg (27.0-32.0); Mean Corpuscular Volume 96.3 fL (80-94); Mean Platelet Vol. 10.2 fl (6.2-12.0); Platelet Count 271 K/mm3 (150-450); RBC Distribution Width CV 12.5 % (11.6-14.6); RBC Distribution Width SD 44.7 fl (35.1-43.9); White Blood Count 7.3 K/mm3 (4.4-11.0)
[2019-06-14 12:47] LABS: ALB/GLOB Ratio 1.1 RATIO (0.9-2.4); AST(SGOT) 21 U/L (15-37); Alanine Aminotransfer ALT/SGPT 44 U/L (16-61); Albumin, Serum 3.9 g/dL (3.2-5.0); Alkaline Phosphatase 144 U/L (45-117); Anion Gap 6 (5-15); BUN 19 mg/dL (7-18); BUN/Creat Ratio 16.4 RATIO (10-20); Calcium,Total 9.5 mg/dL (8.5-10.1); Chloride 118 mmol/L (98-107); Creatinine, Serum 1.16 mg/dL (0.70-1.30); EST Glomerular Filtration Rate 74 mL/min (>60); Est Glom Filt Rate - Afr Amer 89 mL/min (>60); Globulin 3.5 g/dL (2.2-4.2); Glucose 100 mg/dL (74-106); Potassium 4.1 mmol/L (3.5-5.1); Protein, Total 7.4 g/dL (6.4-8.2); Sodium Level 149 mmol/L (136-145); Thyroid Stim Hormone (TSH) 2.04 uIU/mL (0.358-3.74)
== END ==
PROVIDERS: Family Provider Family Medicine Geriatric Medicine; PCP Family Medicine Geriatric Medicine; Visit Provider Psychiatry & Neurology Child & Adolescent Psychiatry
DX: F31.9 Bipolar disorder, unspecified (principal)
CPT/HCPCS: 36415; 80053; 80178; 84443; 85027

== ENCOUNTER → 2020-02-14 04:30 | Outpatient (CLI) | payer MEDICARE, MEDICAID, SELFPAY ==
[2020-02-14 08:54] LABS: Basophil# 0.06 X10^3/uL; Basophil% 0.6 % (0-1); Hematocrit 52.4 % (40-54); Hemoglobin 17.3 g/dL (13.0-16.5); Lymphocyte % 19.8 % (19-41); Mean Corpuscular Volume 99.8 fL (80-94); Mean Platelet Vol. 10.2 fl (6.2-12.0); Monocyte# 0.72 X10^3/uL; Monocyte% 7.1 % (0-10); NRBC Flagged by Analyzer 0 % (0-5); Neutrophil % 69.2 % (47-70); Platelet Count 294 K/mm3 (150-450); RBC Distribution Width CV 13.3 % (11.6-14.6); RBC Distribution Width SD 49.1 fl (35.1-43.9); Red Blood Count 5.25 M/mm3 (4.6-6.2); White Blood Count 10.1 K/mm3 (4.4-11.0)
[2020-02-14 09:21] LABS: Vitamin D,25 Hydroxy 31.4 ng/mL
[2020-02-14 09:27] LABS: AST(SGOT) 24 U/L (15-37); Alanine Aminotransfer ALT/SGPT 83 U/L (16-61); Albumin, Serum 4.3 g/dL (3.2-5.0); Alkaline Phosphatase 184 U/L (45-117); Anion Gap 4 (5-15); BUN 23 mg/dL (7-18); BUN/Creat Ratio 16.4 RATIO (10-20); Calcium,Total 9.8 mg/dL (8.5-10.1); Chloride 120 mmol/L (98-107); EST Glomerular Filtration Rate 59 mL/min (>60); Est Glom Filt Rate - Afr Amer 71 mL/min (>60); Globulin 4.1 g/dL (2.2-4.2); Glucose 122 mg/dL (74-106); Potassium 3.7 mmol/L (3.5-5.1); Protein, Total 8.4 g/dL (6.4-8.2); Sodium Level 156 mmol/L (136-145); Thyroid Stim Hormone (TSH) 1.51 uIU/mL (0.358-3.74)
[2020-02-14 09:28] LABS: Phenytoin (Dilantin) Level 15.8 mL (10.0-20.0)
== END ==
PROVIDERS: PCP Family Medicine Geriatric Medicine; Visit Provider Family Medicine Geriatric Medicine
DX: E78.5 Hyperlipidemia, unspecified (principal); R53.83 Other fatigue; E55.9 Vitamin D deficiency, unspecified; F31.9 Bipolar disorder, unspecified; G40.909 Epilepsy, unspecified, not intractable, without status epilepticus
CPT/HCPCS: 36415; 80053; 80178; 80185; 82306; 84443; 85025

== ENCOUNTER → 2020-03-08 09:52 | Outpatient (CLI) | payer MEDICARE, MEDICAID, SELFPAY ==
[2020-03-08 12:19] LABS: Absolute Lymphocyte Count 2.55 X10^3/uL (0.83-4.51); Absolute Neutrophil Count 7.2 X10^3/uL (2.0-7.7); Basophil# 0.04 X10^3/uL; Basophil% 0.4 % (0-1); Eosinophil# 0.37 X10^3/uL; Eosinophils% 3.4 % (0-5); Hematocrit 45.5 % (40-54); Hemoglobin 15.2 g/dL (13.0-16.5); Lymphocyte # 2.55 X10^3/ul (4.0); Lymphocyte % 23.2 % (19-41); Mean Corp Hgb Conc 33.4 g/dL (32-36); Mean Corpuscular Hgb 32.9 pg (27.0-32.0); Mean Corpuscular Volume 98.5 fL (80-94); Mean Platelet Vol. 10.3 fl (6.2-12.0); Monocyte# 0.78 X10^3/uL; Monocyte% 7.1 % (0-10); NRBC Flagged by Analyzer 0 % (0-5); Neutrophil # 7.24 X10^3/uL (2.7-7.7); Neutrophil % 65.7 % (47-70); Platelet Count 253 K/mm3 (150-450); RBC Distribution Width CV 13.5 % (11.6-14.6); RBC Distribution Width SD 49.1 fl (35.1-43.9); Red Blood Count 4.62 M/mm3 (4.6-6.2)
[2020-03-08 12:45] LABS: AST(SGOT) 37 U/L (15-37); Alanine Aminotransfer ALT/SGPT 84 U/L (16-61); Albumin, Serum 3.4 g/dL (3.2-5.0); Alkaline Phosphatase 155 U/L (45-117); Anion Gap 2 (5-15); BUN 17 mg/dL (7-18); BUN/Creat Ratio 13.9 RATIO (10-20); Calcium,Total 9.4 mg/dL (8.5-10.1); Chloride 124 mmol/L (98-107); Creatinine, Serum 1.22 mg/dL (0.70-1.30); EST Glomerular Filtration Rate 69 mL/min (>60); Est Glom Filt Rate - Afr Amer 84 mL/min (>60); Globulin 3.3 g/dL (2.2-4.2); Glucose 89 mg/dL (74-106); Potassium 3.7 mmol/L (3.5-5.1); Protein, Total 6.7 g/dL (6.4-8.2); Sodium Level 153 mmol/L (136-145); Thyroid Stim Hormone (TSH) 0.78 uIU/mL (0.358-3.74)
[2020-03-08 13:04] LABS: Phenytoin (Dilantin) Level 15.4 mL (10.0-20.0)
== END ==
PROVIDERS: PCP Family Medicine Geriatric Medicine; Visit Provider Family Medicine Geriatric Medicine
DX: F31.9 Bipolar disorder, unspecified (principal); G40.909 Epilepsy, unspecified, not intractable, without status epilepticus; R53.83 Other fatigue
CPT/HCPCS: 36415; 80053; 80178; 80185; 84443; 85025

== ENCOUNTER → 2020-03-09 08:25 | Outpatient (CLI) | payer MEDICARE, MEDICAID, SELFPAY ==
--- NOTE | 2020-03-09 08:29 | RAD_ITS ---
STUDY: X-RAY - ABDOMEN/PELVIS REASON FOR EXAM: Male, 44 years old. ? FECAL IMPACTION, ABDOMINAL DISCOMFORT, PT NON VERBAL TECHNIQUE: 3 AP views COMPARISON: None. FINDINGS: Normal visualized lung bases. There is an abundance of fecal material throughout the colon. There is no demonstrated free abdominal air. The visualized liver, spleen and kidneys are grossly normal in size and morphology. Normal soft tissue structures. There is a rotatory scoliosis. RAD/Abd Inc Decub and/or Erect IMPRESSION: Retained stool, perhaps impacted in the descending colon Scoliosis Electronically Signed: César Gonzalez MD at 17:06 EDT , Service support ,
== END ==
PROVIDERS: PCP Family Medicine Geriatric Medicine; Referring Provider Family Medicine Geriatric Medicine; Visit Provider Family Medicine Geriatric Medicine
DX: R06.89 Other abnormalities of breathing (principal); K56.41 Fecal impaction
CPT/HCPCS: 74019; 87635; 94799; J7030; A4216; U0003

== ENCOUNTER 2020-08-22 18:14 | Inpatient (IN) | payer MEDICARE, MEDICAID, SELFPAY ==
[2020-08-22 18:15] VITALS: BP 131/89; PULSE 107; RESP 16; TEMP 36.3; O2SAT 98; BMI 21.9
--- NOTE | 2020-08-22 18:43 | EKG12_ITS ---
Test Reason : SEIZURE Blood Pressure : / mmHG Vent. Rate : 102 BPM Atrial Rate : 102 BPM P-R Int : 154 ms QRS Dur : 100 ms QT Int : 370 ms P-R-T Axes : 037 073 003 degrees QTc Int : 482 ms Sinus tachycardia Cannot rule out Inferior infarct , age undetermined Abnormal ECG Confirmed by SHARON SHANNON, MANDA ([id number]), slot editor ISIDRA CERNA ([id number]) on 08/28/2020 12:50:05 PM Referred By: MALIKA Confirmed By:MANDA HERRERA MD
--- NOTE | 2020-08-22 18:44 | CT_ITS ---
STUDY: CT BRAIN WITHOUT CONTRAST REASON FOR EXAM: Male, 44 years old. MULT. GRAND MAL SEIZURES TODAY -- HX:EPILEPSY,NON VERBAL,BIPOLAR,DEPRESSION,SCHIZOPHRENIA RADIATION DOSAGE (If Supplied By Facility): CTDIvol = ( 44.99 ) mGy, DLP = ( 846.73 ) mGycm TECHNIQUE: Transaxial CT imaging of the brain was performed without administration of intravenous contrast material. Individualized dose optimization techniques were used for this CT. COMPARISON: 02/10/2017 FINDINGS: There is a subcutaneous 1.2 cm fatty nodule in the left frontal scalp. Normal calvarium. Normal size ventricles and extra-axial spaces for the patient''s age. Normal white matter tracts of the cerebral hemispheres. Normal basal ganglia and thalami. Normal brainstem. Normal cerebellum. There is no intracranial hemorrhage. There are no findings of an acute ischemic infarction. Normal visualized paranasal sinuses. CT/Brain/Head without Contrast IMPRESSION: No acute intracranial pathology of the brain. Electronically Signed: Edilberto Guy DO at 19:57 EST Tel [phone], Service support ,
--- NOTE | 2020-08-22 18:45 | ED.DCSUM_ITS ---
History of Present Illness Chief Complaint: Seizure Narrative: Patient is a 44-year-old male who presents with multiple seizures. He does have a history of MR and is nonverbal at baseline. He is from a correction. He has known seizure disorder. He is on Dilantin. He had 2 grand mal seizures this morning and then another this evening. As far as father is aware no recent illness such as fevers vomiting diarrhea. However he has not been unable to see the patient last couple of months due to the restrictions on correction visitation with Covid. History is limited as the patient is nonverbal. Past Medical History - Allergies and Home Meds Allergies/Adverse Reactions: Allergies No Known Allergies Allergy (Verified 08/22/20 18:21) Primary Care Physician: Herbie Rucker Chi, MD [Primary Care Provider] - Past Medical History: - - MR, seizure disorder Smoking Status: Never smoker - Family History Maternal Family History: Reports: No pertinent history Review of Systems ROS: Unable to Obtain Physical Exam Vital Signs/Narrative: Vital Signs Temp Pulse Resp BP Pulse Ox 08/22/20 18:15 97.3 F L 107 H 16 131/89 H 98 Inital Vital Signs reviewed: Yes General: Well nourished Head: Normocephalic Eyes: EOMI ENT: Moist mucous membranes Neck: Supple Cardiovascular: Regular rhythm, Tachycardia Respiratory: No distress, Rales - bibasilar rales Abdomen: Soft, Nontender Skin: Normal color Neurological: - - Alert, no focal or lateralizing neurological deficits, nonverbal Psychological: Normal affect Diagnostic/Tx/Re-eval Impressions Brain CT 08/22/20 18:44 IMPRESSION: No acute intracranial pathology of the brain. Electronically Signed: Edilberto Guy DO at 19:57 EST Tel [phone], Service support , Chest X-Ray 08/22/20 19:35 IMPRESSION: Normal x-ray examination of the chest. Electronically Signed: Edilberto Guy DO at 19:52 EST Tel [phone], Service support , 08/22/20 18:44 CT Head [Brain/Head without Contrast] [CT] Stat 08/22/20 19:35 Chest 1 View (Portable) [RAD] Stat 08/22/20 19:10 Mucosa - Nasopharyngeal SARS-CoV-2 Antigen (Rapid) - Final Laboratory Results 08/22/20 08/22/20 08/22/20 19:05 19:05 19:05 WBC 12.5 H RBC 4.91 Hgb 15.4 Hct 45.7 MCV 93.1 MCH 31.4 MCHC 33.7 RDW Std Deviation 45.1 H RDW Coeff of Neena 13.2 Plt Count 353 MPV 9.3 Immature Gran % (Auto) 0.300 Neut % (Auto) 76.0 H Lymph % (Auto) 11.6 L Oceana % (Auto) 10.2 H Eos % (Auto) 1.6 Baso % (Auto) 0.3 Absolute Neuts (auto) 9.5 H Absolute Lymphs (auto) 1.45 Nucleated RBC % 0 Sodium 146 H Potassium 3.2 L Chloride 116 H Carbon Dioxide 24.0 Anion Gap 6 BUN 7 Creatinine 1.25 Estim Creat Clear Calc 73.50 Est GFR (MDRD) Af Amer 81 Est GFR (MDRD) Non-Af 67 BUN/Creatinine Ratio 5.6 L Glucose 91 Calcium 9.9 Total Bilirubin 0.20 AST 14 L ALT 33 Alkaline Phosphatase 207 H Total Protein 7.5 Albumin 3.9 Globulin 3.6 Albumin/Globulin Ratio 1.1 Phenytoin 14.2 - Medical Decision Making Patient did have a seizure while here and was given 2 mg of IV Ativan. Diagnostic evaluation essentially unremarkable except for elevated chloride. Covid negative. Dilantin level is therapeutic. I spoke to the hospitalist who agrees to admit but requested a neurology consultation. We will obtain neurology consultation from the ER but the patient can then be admitted here. Neurology consultation pending at the time of this dictation. ED Disposition - Plan for ED Patient: Disposition: [facility] Diagnosis: Seizures Referrals: Herbie Rucker Chi, MD [Primary Care Provider] -
[2020-08-22 19:21] LABS: Absolute Lymphocyte Count 1.45 X10^3/uL (0.83-4.51); Absolute Neutrophil Count 9.5 X10^3/uL (2.0-7.7); Basophil# 0.04 X10^3/uL; Basophil% 0.3 % (0-1); Eosinophils% 1.6 % (0-5); Hematocrit 45.7 % (40-54); Hemoglobin 15.4 g/dL (13.0-16.5); Lymphocyte # 1.45 X10^3/ul (4.0); Lymphocyte % 11.6 % (19-41); Mean Corp Hgb Conc 33.7 g/dL (32-36); Mean Corpuscular Hgb 31.4 pg (27.0-32.0); Mean Corpuscular Volume 93.1 fL (80-94); Mean Platelet Vol. 9.3 fl (6.2-12.0); Monocyte# 1.28 X10^3/uL; Monocyte% 10.2 % (0-10); NRBC Flagged by Analyzer 0 % (0-5); Neutrophil # 9.48 X10^3/uL (2.7-7.7); Platelet Count 353 K/mm3 (150-450); RBC Distribution Width CV 13.2 % (11.6-14.6); RBC Distribution Width SD 45.1 fl (35.1-43.9); Red Blood Count 4.91 M/mm3 (4.6-6.2); White Blood Count 12.5 K/mm3 (4.4-11.0)
[2020-08-22] MEDS: LORazepam 2 MG/ML Syringe IV (19:24)
[2020-08-22 19:27] VITALS: PULSE 107; RESP 24; O2SAT 96
--- NOTE | 2020-08-22 19:35 | RAD_ITS ---
STUDY: X-RAY CHEST REASON FOR EXAM: Male, 44 years old. GRAND MAL SEIZURES X2 TODAY. HX OF SEIZURES. PT IS NON VERBAL. SEVERE MENTAL DISABILITY. TECHNIQUE: Frontal view COMPARISON: 07/26/2018 FINDINGS: The lungs are not fully expanded. There is no demonstrated pleural abnormality. Normal size heart. Normal mediastinum and danii. Normal visualized pulmonary arteries. Normal visualized aortic arch and descending thoracic aorta. Mild degenerative changes of the thoracic spine. Normal visualized ribs, clavicles, and shoulders. There is no demonstrated abnormality of the visualized soft tissue structures of the upper abdomen. RAD/Chest 1 View (Portable) IMPRESSION: Normal x-ray examination of the chest. Electronically Signed: Edilberto Guy DO at 19:52 EST Tel [phone], Service support ,
[2020-08-22 19:38] LABS: ALB/GLOB Ratio 1.1 RATIO (0.9-2.4); AST(SGOT) 14 U/L (15-37); Alanine Aminotransfer ALT/SGPT 33 U/L (16-61); Albumin, Serum 3.9 g/dL (3.2-5.0); Alkaline Phosphatase 207 U/L (45-117); Anion Gap 6 (5-15); BUN 7 mg/dL (7-18); BUN/Creat Ratio 5.6 RATIO (10-20); Calcium,Total 9.9 mg/dL (8.5-10.1); Chloride 116 mmol/L (98-107); Creatinine, Serum 1.25 mg/dL (0.70-1.30); EST Glomerular Filtration Rate 67 mL/min (>60); Est Glom Filt Rate - Afr Amer 81 mL/min (>60); Globulin 3.6 g/dL (2.2-4.2); Glucose 91 mg/dL (74-106); Potassium 3.2 mmol/L (3.5-5.1); Protein, Total 7.5 g/dL (6.4-8.2); Sodium Level 146 mmol/L (136-145)
[2020-08-22 20:02] LABS: Phenytoin (Dilantin) Level 14.2 mL (10.0-20.0)
[2020-08-22] MEDS: 0.9% Normal Saline 1,000 ML 999 ML IV (20:30)
[2020-08-22 20:43] VITALS: BP 116/80; PULSE 88; RESP 16; TEMP 36.3; O2SAT 96
--- NOTE | 2020-08-22 20:50 | HP.PCM_ITS ---
Problem List (1) Seizures Status: Acute (2) Seizure disorder Status: Acute (3) Mental deficiency Status: Chronic History of Present Illness Date of Admission: 08/22/20 Chief Complaint: seizures The patient is a 44 year old M with a significant history of mental retardation and epilepsy and who lives at an care home presented to emergency department with seizures. On the morning of the day of presentation he had 2 seizures at a care home. Later in the afternoon he had another seizure. At emergency department patient also had another seizure. Reportedly the seizures at the care home where grand mal seizures. Past Medical History Past Medical History (Chronic Problems): Chronic Problems Mental deficiency (Chronic) Allergies No Known Allergies Allergy (Verified 08/22/20 18:21) Home Medications: Ambulatory Orders Medication Instructions Recorded Cholecalciferol (Vitamin D3) 2,000 unit PO DAILY 02/10/17 [Vitamin D3] [place] Carbonate 600 mg PO BID 02/10/17 Olanzapine [Zyprexa] 15 mg PO QHS 02/10/17 Phenytoin Sodium Extended 200 mg PO QHS 02/10/17 [Dilantin] Phenytoin [Dilantin] 50 mg PO QHS 02/10/17 Tamsulosin HCl [Flomax] 0.4 mg PO DAILY 02/10/17 Diazepam [Valium] 5 mg RECTALLY PRN PRN #10 tab 07/26/18 Famotidine [Pepcid] 40 mg PO DAILY 07/26/18 ALPRAZolam [Xanax] 2 mg PO DAILY PRN 08/22/20 Lactulose 30 gm PO DAILY 08/22/20 Levocetirizine Dihydrochloride 5 mg PO DAILY 08/22/20 Linacolotide [Linzess] 145 mcg PO DAILY 08/22/20 Surgical History: no surgical history Smoking Status: Never smoker - *Family History Maternal History Items: Cancer Paternal History Items: Hypertension Review of Systems Unable to obtain accurate/complete ROS d/t: mental retardation VTE Information - Inpt Only VTE Present on Admission: No VTE Mechan Device Prophylaxis: None VTE Pharm Prophylaxis ordered?: Yes Patient Problems: Active and Suspected Problems Seizures (Acute) Seizure disorder (Acute) - Physical Exam Vitals/I&O's: Vital Signs Temp Pulse Resp BP Pulse Ox 97.3 F L 88 16 116/80 96 08/22/20 20:43 08/22/20 20:43 08/22/20 20:43 08/22/20 20:43 08/22/20 20:43 Oxygen Delivery Method Room Air Weight: 67.5 kg Body Mass Index (BMI) 21.9 General: Alert HEENT: Atraumatic, PERRLA, EOMI, Normocephalic Neck: Supple, No JVD, Negative Carotid Bruits Lungs: Clear to auscultation, Normal air movement Cardiovascular: Regular rate, Normal S1, Normal S2, No murmurs Abdomen: Bowel Sounds Present, Soft, Non Tender Extremities: No edema, Capillary Refill Less than 3 Seconds Skin: No rashes, No breakdown Musculoskeletal: No Tenderness to Palpation of Joints or Extremities Neurological: Cranial nerves II-XII grossly intact Psych/Mental Status: Normal Affect, Appropriate Microbiology Past 72 Hours 08/22/20 19:10 Mucosa - Nasopharyngeal SARS-CoV-2 Antigen (Rapid) - Final Laboratory Results 08/22/20 19:05: WBC 12.5 H, RBC 4.91, Hgb 15.4, Hct 45.7, MCV 93.1, MCH 31.4, MCHC 33.7, RDW Std Deviation 45.1 H, RDW Coeff of Neena 13.2, Plt Count 353, MPV 9.3, Immature Gran % (Auto) 0.300, Neut % (Auto) 76.0 H, Lymph % (Auto) 11.6 L, [place] % (Auto) 10.2 H, Eos % (Auto) 1.6, Baso % (Auto) 0.3, Absolute Neuts (auto) 9.5 H, Absolute Lymphs (auto) 1.45, Nucleated RBC % 0 08/22/20 19:05: Sodium 146 H, Potassium 3.2 L, Chloride 116 H, Carbon Dioxide 24.0, Anion Gap 6, BUN 7, Creatinine 1.25, Estim Creat Clear Calc 73.50, Est GFR (MDRD) Af Amer 81, Est GFR (MDRD) Non-Af 67, BUN/Creatinine Ratio 5.6 L, Glucose 91, Calcium 9.9, Total Bilirubin 0.20, AST 14 L, ALT 33, Alkaline Phosphatase 207 H, Total Protein 7.5, Albumin 3.9, Globulin 3.6, Albumin/Globulin Ratio 1.1 08/22/20 19:05: Phenytoin 14.2 Current Medications Sodium Chloride () 1,000 mls @ 999 mls/hr IV .Q1H1M ONE Stop: 08/22/20 21:00 Last Admin: 08/22/20 20:30 Dose: 999 mls/hr Documented by: Assessment/Plan All Active Problems Seizures (Acute) Hypokalemia (Acute) Seizure disorder (Acute) The patient is a 44 year old M with a significant history of mental retardation and epilepsy and who lives at an care home and with multiple episodes of seizures on the same day of presentation. Multiple seizures CT at emergency department showed no acute intracranial pathology. Received Ativan 2 mg IV x1 in the emergency department. Dilantin level at the emergency department was unremarkable. With multiple seizures discussed emergent department doctor to discuss the case with SOC neurologist. Patient will be admitted to the progressive care unit. Ativan as needed ordered. Await further neurology recommendations. Hyponatremia with hypochloremia. ED doc was concerned with it may be experienced from IV line. Repeat in a.m. Hypokalemia Potassium of 3.2 IV replacement ordered. BMP in a.m. GERD Pepcid continued Allergies Levocetirizine continued IBS Linzess continued Mood disorder Norton and olanzapine continued BPH/urinary retention Flomax continued. DVT prophylaxis Subcutaneous Lovenox ordered. Inpatient E&M: 22732 Init Hosp L3
--- NOTE | 2020-08-22 21:07 | ED.RN ---
Pending SOC neurologist and then floor.
--- NOTE | 2020-08-22 21:36 | ED.RN ---
PT DOES NOT TOLERATE TELE LEADS, BP CUFF OR PULSE OX.
[2020-08-22 22:30] VITALS: BP 113/77; PULSE 98; RESP 16; TEMP 37.7; O2SAT 95
[2020-08-22 22:32] VITALS: PULSE 99
[2020-08-22 22:37] VITALS: BMI 22.0; BMI 22.4
[2020-08-22 23:00] VITALS: PULSE 94
[2020-08-22] MEDS: Potassium Chloride 10mEq/100mL 10 MEQ/100 ML IV.SOLN. 100 MEQ IV BOLUS (23:23)
[2020-08-22] MEDS: Phenytoin Na 100 MG Capsule 200 MG PO (23:59)
[2020-08-22] MEDS: Phenytoin Na 100 MG/4 ML UDC 50 MG PO (23:59)
[2020-08-22] MEDS: OLANZapine 5 MG/TAB TAB.RAPDIS 15 MG PO (23:59)
[2020-08-23] MEDS: Potassium Chloride 10mEq/100mL 10 MEQ/100 ML IV.SOLN. 100 MEQ IV BOLUS ×3 (00:24→02:24)
[2020-08-23 02:59] VITALS: PULSE 91
--- NOTE | 2020-08-23 03:53 | PCS.PANDOC ---
PANDEMIC DOCUMENTATION INITIATED: Date: 08/22/20 Time: 22:25
[2020-08-23 04:30] VITALS: BP 122/74; PULSE 88; RESP 18; TEMP 37.1; O2SAT 96
[2020-08-23 05:54] LABS: Absolute Lymphocyte Count 2.01 X10^3/uL (0.83-4.51); Absolute Neutrophil Count 9.9 X10^3/uL (2.0-7.7); Basophil# 0.05 X10^3/uL; Basophil% 0.4 % (0-1); Eosinophil# 0.13 X10^3/uL; Hematocrit 43.4 % (40-54); Hemoglobin 14.5 g/dL (13.0-16.5); Lymphocyte # 2.01 X10^3/ul (4.0); Mean Corp Hgb Conc 33.4 g/dL (32-36); Mean Corpuscular Hgb 31.3 pg (27.0-32.0); Mean Corpuscular Volume 93.7 fL (80-94); Mean Platelet Vol. 9.4 fl (6.2-12.0); Monocyte# 1.28 X10^3/uL; Monocyte% 9.6 % (0-10); NRBC Flagged by Analyzer 0 % (0-5); Neutrophil # 9.87 X10^3/uL (2.7-7.7); Neutrophil % 73.7 % (47-70); Platelet Count 310 K/mm3 (150-450); RBC Distribution Width CV 13.4 % (11.6-14.6); RBC Distribution Width SD 46.3 fl (35.1-43.9); Red Blood Count 4.63 M/mm3 (4.6-6.2); White Blood Count 13.4 K/mm3 (4.4-11.0)
[2020-08-23 06:07] LABS: Anion Gap 4 (5-15); BUN 7 mg/dL (7-18); BUN/Creat Ratio 5.4 RATIO (10-20); Calcium,Total 9.4 mg/dL (8.5-10.1); Chloride 119 mmol/L (98-107); Creatinine, Serum 1.29 mg/dL (0.70-1.30); EST Glomerular Filtration Rate 65 mL/min (>60); Est Glom Filt Rate - Afr Amer 78 mL/min (>60); Estimated Creatinine Clearance 68.69 ml/min; Glucose 117 mg/dL (74-106); Potassium 3.8 mmol/L (3.5-5.1); Sodium Level 148 mmol/L (136-145)
[2020-08-23 07:00] VITALS: PULSE 89
--- NOTE | 2020-08-23 07:10 | CPS ---
EEG attempted by two RT's however patient repeatedly pulled EEG electrodes off. Attempted to calm by verbal que's with no success. . 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
[2020-08-23] MEDS: Enoxaparin 40 MG/0.4 ML Syringe SC (10:12)
[2020-08-23] MEDS: Lactulose 20 GM/30 ML UDC 30 GM PO (10:12)
[2020-08-23] MEDS: Tamsulosin HCl 0.4 MG Capsule PO (10:12)
[2020-08-23] MEDS: Famotidine 20 MG Tablet 40 MG PO (10:12)
[2020-08-23] MEDS: Loratadine 10 MG Tablet PO (10:13)
[2020-08-23 10:30] VITALS: BP 119/87; PULSE 83; RESP 18; TEMP 36.6; O2SAT 98
--- NOTE | 2020-08-23 11:29 | PCM.DC ---
- Discharge Diagnoses Current Active Problems: Current Active and Chronic Problems Seizures (Acute) Seizure disorder (Acute) Mental deficiency (Chronic) You will use the following diet at home:: Regular Your food should be the consistency of: Regular Your liquids should be the consistency of: Regular/Thin Discharge Activity: Return to Normal Activity Call your doctor if you observe: Fever of 101 or Higher, Shortness of breath, Dizziness, Fainting spells, Swelling in the ankles, Chest pain, Increased palpitations (irregular heartbeat) Additional Instructions: Will Check a lithium level prior to DC and if elevated with call the intermediate to adjust the dosing. Allergies/Adverse Reactions: Allergies No Known Allergies Allergy (Verified 08/22/20 18:21) Medications to take at Discharge Cholecalciferol (Vitamin D3) [Vitamin D3] 2,000 unit PO DAILY 02/10/17 [place] Carbonate 600 mg PO BID 02/10/17 Olanzapine [Zyprexa] 15 mg PO QHS 02/10/17 Phenytoin Sodium Extended [Dilantin] 200 mg PO QHS 02/10/17 Phenytoin [Dilantin] 50 mg PO QHS 02/10/17 Tamsulosin HCl [Flomax] 0.4 mg PO DAILY 02/10/17 Diazepam [Valium] 5 mg RECTALLY PRN PRN #10 tab 07/26/18 Famotidine [Pepcid] 40 mg PO DAILY 07/26/18 ALPRAZolam [Xanax] 2 mg PO DAILY PRN 08/22/20 Lactulose 30 gm PO DAILY 08/22/20 Levocetirizine Dihydrochloride 5 mg PO DAILY 08/22/20 Linacolotide [Linzess] 145 mcg PO DAILY 08/22/20 Primary Care Physician: Herbie Rucker Chi, MD [Primary Care Provider] - Please follow up with your Primary Care Physician in: 3-5 days Test Results: Test results from this visit will be discussed in further detail at your follow-up appointment, if applicable. Please Follow Up With: Jonathon Henry MD When: 2-4 weeks
--- NOTE | 2020-08-23 11:51 | CASEMGMT ---
PAULINO called the [facility] and spoke with Judith. PAULINO let her know patient will be returning today. She asked that SW call Елена who is with [facility]. PAULINO asked if SW needed to arrange transportation. She said she was under the impression his dad was bringing him home. PAULINO told her SW will check on this. PAULINO called Елена with [facility] and let her know about discharge. She thanked PAULINO for letting her know. PAULINO spoke with RN who also said patient's dad will be taking him back to the [facility]. Plan: [facility]/c back to the [facility]. Patient's dad will transport patient. Mabel PURI MSW
--- NOTE | 2020-08-23 12:51 | PCM.DC.SUM ---
Discharge Date and Diagnosis - Problem List Patient Problems: Active and Suspected Problems Seizures (Acute) Seizure disorder (Acute) Date of Admission: 08/22/20 Date of Discharge: 08/23/20 - Primary Discharge Diagnosis Acute Problems: Active Problems Seizures (Acute) Seizure disorder (Acute) - Secondary Discharge Diagnosis Chronic Problems: Chronic Problems Mental deficiency (Chronic) Hospital Course and Treatment Imaging Results: Clinical Impression(s) from Imaging Studies Brain CT 08/22/20 18:44 IMPRESSION: No acute intracranial pathology of the brain. Electronically Signed: Edilberto Guy DO at 19:57 EST Tel [phone], Service support , Chest X-Ray 08/22/20 19:35 IMPRESSION: Normal x-ray examination of the chest. Electronically Signed: Edilberto Guy DO at 19:52 EST Tel [phone], Service support , Consults: SOC Neurology Operations: None Procedures: None Summary of Care Provided: Per HPI: The patient is a 44 year old M with a significant history of mental retardation and epilepsy and who lives at an custodial presented to emergency department with seizures. On the morning of the day of presentation he had 2 seizures at a custodial. Later in the afternoon he had another seizure. At emergency department patient also had another seizure. Reportedly the seizures at the custodial where grand mal seizures. Hospital Course: 1. Chronic seizures/chronic hypernatremia and [id number]-old male who lives in a custodial secondary to MRDD and chronic epilepsy presented to the hospital after he had multiple seizures. According to his father he has cluster seizures will he will have 1 or 2 seizures and then will not have another seizure for several months. It appears that he had 4 seizures in that day and his father thinks that it was secondary to the fact that his custodial is closing and he had had a lot of changes in his life. He was transition to his new custodial over the weekend to get acclimated and then brought back to his old custodial where they are in the process of packing and moving. His Dilantin level was checked which was normal at 14.2, on the day of discharge her lithium level was ordered and normal. Neurology was consulted in the ER and they felt that this was his baseline and that they did not want a make any changes. They did recommend an EEG however the patient was not compliant with this and therefore we were unable to get this performed. He does have a leukocytosis on admission and this is likely secondary to the 4 grand mal seizures he had yesterday prior to admission. He is afebrile, and his chest x-ray was unremarkable, however if he does develop a fever I would check UA for possible UTI though at the moment nothing needs me to think that he has any type of infection. I discussed the discharge plan with his father who understood the risks and benefits of taking him back to the custodial and would like to take him back to the custodial today. Continue with his Xanax, Valium, lactulose, lithium, olanzapine, and phenytoin at normal doses. 2. Irritable bowel syndrome, GERD, allergies, mood disorder, BPH with urinary retention are all chronic medical conditions which complicate his care. His home medications were continued where appropriate Patient Problems: Active and Suspected Problems Seizures (Acute) Seizure disorder (Acute) - Physical Exam Vitals/I&O's: Vital Signs Temp Pulse Resp BP Pulse Ox 97.8 F 83 18 119/87 H 98 08/23/20 10:30 08/23/20 10:30 08/23/20 10:30 08/23/20 10:30 08/23/20 10:30 Oxygen Delivery Method Room Air Weight: 143 lb 8.335 oz Body Mass Index (BMI) 22.4 Intake and Output for Last 24 Hours 08/21/20 08/22/20 08/23/20 23:59 23:59 23:59 Intake Total 1480 / 1480 740 / 740 Balance 1480 / 1480 740 / 740 General: Alert, Cooperative, No apparent distress, - - Tired HEENT: Atraumatic, PERRLA, EOMI, Normocephalic Oral: Moist Mucosa Neck: Supple, No JVD Lungs: Clear to auscultation, Normal air movement, No rhonchi, No wheeze, No rales Cardiovascular: Regular rate, Regular Rhythm, Normal S1, Normal S2, No murmurs Abdomen: Soft, Non Tender, Non-Distended, No Hepato-splenomegaly Extremities: No edema, Capillary Refill Less than 3 Seconds Skin: No rashes, No breakdown Neurological: Neuro grossly intact Psych/Mental Status: Flat Affect Microbiology Past 72 Hours 08/22/20 19:10 Mucosa - Nasopharyngeal SARS-CoV-2 Antigen (Rapid) - Final Laboratory Results 08/22/20 19:05: WBC 12.5 H, RBC 4.91, Hgb 15.4, Hct 45.7, MCV 93.1, MCH 31.4, MCHC 33.7, RDW Std Deviation 45.1 H, RDW Coeff of Neena 13.2, Plt Count 353, MPV 9.3, Immature Gran % (Auto) 0.300, Neut % (Auto) 76.0 H, Lymph % (Auto) 11.6 L, [place] % (Auto) 10.2 H, Eos % (Auto) 1.6, Baso % (Auto) 0.3, Absolute Neuts (auto) 9.5 H, Absolute Lymphs (auto) 1.45, Nucleated RBC % 0 08/22/20 19:05: Sodium 146 H, Potassium 3.2 L, Chloride 116 H, Carbon Dioxide 24.0, Anion Gap 6, BUN 7, Creatinine 1.25, Estim Creat Clear Calc 73.50, Est GFR (MDRD) Af Amer 81, Est GFR (MDRD) Non-Af 67, BUN/Creatinine Ratio 5.6 L, Glucose 91, Calcium 9.9, Total Bilirubin 0.20, AST 14 L, ALT 33, Alkaline Phosphatase 207 H, Total Protein 7.5, Albumin 3.9, Globulin 3.6, Albumin/Globulin Ratio 1.1 08/22/20 19:05: Phenytoin 14.2 08/23/20 05:34: WBC 13.4 H, RBC 4.63, Hgb 14.5, Hct 43.4, MCV 93.7, MCH 31.3, MCHC 33.4, RDW Std Deviation 46.3 H, RDW Coeff of Neena 13.4, Plt Count 310, MPV 9.4, Immature Gran % (Auto) 0.300, Neut % (Auto) 73.7 H, Lymph % (Auto) 15.0 L, [place] % (Auto) 9.6, Eos % (Auto) 1.0, Baso % (Auto) 0.4, Absolute Neuts (auto) 9.9 H, Absolute Lymphs (auto) 2.01, Nucleated RBC % 0 01/20/21 05:34: Sodium 148 H, Potassium 3.8, Chloride 119 H, Carbon Dioxide 25.0, Anion Gap 4 L, BUN 7, Creatinine 1.29, Estim Creat Clear Calc 68.69, Est GFR (MDRD) Af Amer 78, Est GFR (MDRD) Non-Af 65, BUN/Creatinine Ratio 5.4 L, Glucose 117 H, Calcium 9.4 08/23/20 11:42: Webber 0.80 Current Medications Alprazolam (Alprazolam 0.5 Mg Tablet) 2 mg PO DAILY PRN PRN PRN Reason: AGITATION Cholecalciferol (Cholecalciferol (Vit D3) 1,000 Unit (25mcg)) 2,000 unit PO DAILY [facility] Last Admin: 08/23/20 10:13 Dose: 2,000 unit Documented by: Enoxaparin Sodium (Enoxaparin 40 Mg/0.4 Ml Syringe) 40 mg SC DAILY [facility] Last Admin: 08/23/20 10:12 Dose: 40 mg Documented by: Famotidine (Famotidine 20 Mg Tablet) 40 mg PO DAILY [facility] Last Admin: 08/23/20 10:12 Dose: 40 mg Documented by: Lactulose (Lactulose 20 Gm/30 Ml Udc) 30 gm PO DAILY [facility] Last Admin: 08/23/20 10:12 Dose: 30 gm Documented by: [place] Carbonate ([place] Carbonate 300mg Capsule) 600 mg PO BID [facility] Last Admin: 08/23/20 12:22 Dose: Not Given Documented by: Loratadine (Loratadine 10 Mg Tablet) 10 mg PO DAILY [facility] Last Admin: 08/23/20 10:13 Dose: 10 mg Documented by: Lorazepam (Lorazepam 2 Mg/Ml Syringe) 2 mg IV X1 PRN PRN Reason: SEIZURES Nutritional Formula (Lactose Free) (Ensure Enlive 120 Ml Liquid) 120 ml PO TIDCM [facility] Last Admin: 08/23/20 12:22 Dose: Not Given Documented by: Olanzapine (Olanzapine 5 Mg/Tab Tab.Rapdis) 15 mg PO QHS [facility] Last Admin: 08/22/20 23:59 Dose: 15 mg Documented by: Ondansetron HCl (Ondansetron 4 Mg/2 Ml Vial) 4 mg IV Q8H PRN PRN PRN Reason: NAUSEA/VOMITING Phenytoin Sodium (Phenytoin Na 100 Mg/4 Ml Udc) 50 mg PO QHS [facility] Last Admin: 08/22/20 23:59 Dose: 50 mg Documented by: Phenytoin Sodium (Phenytoin Na 100 Mg Capsule) 200 mg PO QHS [facility] Last Admin: 08/22/20 23:59 Dose: 200 mg Documented by: Sodium Chloride (0.9% Saline Lock 10 Ml Syringe) 10 - 40 ml IV UD PRN PRN Reason: SALINE FLUSH Tamsulosin HCl (Tamsulosin Hcl 0.4 Mg Capsule) 0.4 mg PO DAILY [facility] Last Admin: 08/23/20 10:12 Dose: 0.4 mg Documented by: Discharge Activity: Return to Normal Activity Call your doctor if you observe: Fever of 101 or Higher, Shortness of breath, Dizziness, Fainting spells, Swelling in the ankles, Chest pain, Increased palpitations (irregular heartbeat) Home Medications: Medications to take at Discharge Cholecalciferol (Vitamin D3) [Vitamin D3] 2,000 unit PO DAILY 02/10/17 [place] Carbonate 600 mg PO BID 02/10/17 Olanzapine [Zyprexa] 15 mg PO QHS 02/10/17 Phenytoin Sodium Extended [Dilantin] 200 mg PO QHS 02/10/17 Phenytoin [Dilantin] 50 mg PO QHS 02/10/17 Tamsulosin HCl [Flomax] 0.4 mg PO DAILY 02/10/17 Diazepam [Valium] 5 mg RECTALLY PRN PRN #10 tab 07/26/18 Famotidine [Pepcid] 40 mg PO DAILY 07/26/18 ALPRAZolam [Xanax] 2 mg PO DAILY PRN 08/22/20 Lactulose 30 gm PO DAILY 08/22/20 Levocetirizine Dihydrochloride 5 mg PO DAILY 08/22/20 Linacolotide [Linzess] 145 mcg PO DAILY 08/22/20 Primary Care Physician: Herbie Rucker Chi, MD [Primary Care Provider] - Please follow up with your Primary Care Physician in: 3-5 days Please Follow Up With: Jonathon Henry MD When: 2-4 weeks Disposition: Home Minutes spent on discharge:: 35 Patient Condition:: Stable Medical Necessity - Tobacco Use Smoking Status: Never smoker Tobacco Use: Non-smoker Meaningful Use Info Meaningful Use Diagnoses (Choose all that apply): None applicable Inpatient E&M: 01295 Disch Hosp
--- NOTE | 2020-08-23 13:11 | NURSING ---
Report called to Елена with [facility]. Patient ready to be discharged back to [facility].
--- NOTE | 2020-08-23 13:39 | PHA.DC.MR ---
Pharmacy Service has performed discharge medication reconciliation for this patient. The patient's discharge medication list was reviewed for discrepancies and discrepancies were resolved. Home Medications Cholecalciferol (Vitamin D3) [Vitamin D3] 2,000 unit PO DAILY 02/10/17 [place] Carbonate 600 mg PO BID 02/10/17 Olanzapine [Zyprexa] 15 mg PO QHS 02/10/17 Phenytoin Sodium Extended [Dilantin] 200 mg PO QHS 02/10/17 Phenytoin [Dilantin] 50 mg PO QHS 02/10/17 Tamsulosin HCl [Flomax] 0.4 mg PO DAILY 02/10/17 Diazepam [Valium] 5 mg RECTALLY PRN PRN #10 tab 07/26/18 Famotidine [Pepcid] 40 mg PO DAILY 07/26/18 ALPRAZolam [Xanax] 2 mg PO DAILY PRN 08/22/20 Lactulose 30 gm PO DAILY 08/22/20 Levocetirizine Dihydrochloride 5 mg PO DAILY 08/22/20 Linacolotide [Linzess] 145 mcg PO DAILY 08/22/20
== END 2020-08-23 13:28 | disposition home or self-care (01) | DRG 101 ==
LOC: ED 20:35 → PCU 21:17
PROVIDERS: Admitting Provider Hospitalist; Emergency Provider Emergency Medicine; PCP Family Medicine Geriatric Medicine; Visit Provider Family Medicine
DX: G40.409 Other generalized epilepsy and epileptic syndromes, not intractable, without status epilepticus (principal); E87.1 Hypo-osmolality and hyponatremia; F79 Unspecified intellectual disabilities; E87.6 Hypokalemia; K21.9 Gastro-esophageal reflux disease without esophagitis; K58.9 Irritable bowel syndrome, unspecified; F39 Unspecified mood [affective] disorder; E87.8 Other disorders of electrolyte and fluid balance, not elsewhere classified; N40.1 Benign prostatic hyperplasia with lower urinary tract symptoms; R33.8 Other retention of urine; Z82.49 Family history of ischemic heart disease and other diseases of the circulatory system
CPT/HCPCS: 36415; 70450; 71045; 80048; 80053; 80178; 80185; 85025; 87426; 93005; 99285; J7030; A4216

== ENCOUNTER → 2021-02-06 10:34 | Outpatient (CLI) | payer MEDICARE, MEDICAID, SELFPAY ==
[2020-08-22 22:37] VITALS: BMI 22.4
[2021-02-06 12:24] LABS: Absolute Lymphocyte Count 2.03 X10^3/uL (0.83-4.51); Absolute Neutrophil Count 6.4 X10^3/uL (2.0-7.7); Basophil# 0.06 X10^3/uL; Basophil% 0.6 % (0-1); Eosinophil# 0.29 X10^3/uL; Eosinophils% 2.9 % (0-5); Hematocrit 43.6 % (40-54); Lymphocyte # 2.03 X10^3/ul (0.83-4.51); Lymphocyte % 20.5 % (19-41); Mean Corp Hgb Conc 34.4 g/dL (32-36); Mean Corpuscular Hgb 30.3 pg (27.0-32.0); Mean Corpuscular Volume 88.1 fL (80-94); Mean Platelet Vol. 10.3 fl (6.2-12.0); Monocyte# 1.11 X10^3/uL; Monocyte% 11.2 % (0-10); NRBC Flagged by Analyzer 0 % (0-5); Neutrophil # 6.38 X10^3/uL (2.7-7.7); Neutrophil % 64.5 % (47-70); Platelet Count 366 K/mm3 (150-450); RBC Distribution Width CV 12.8 % (11.6-14.6); RBC Distribution Width SD 41.1 fl (35.1-43.9); Red Blood Count 4.95 M/mm3 (4.6-6.2); White Blood Count 9.9 K/mm3 (4.4-11.0)
[2021-02-06 13:29] LABS: ALB/GLOB Ratio 1.2 RATIO (0.9-2.4); AST(SGOT) 19 U/L (15-37); Alanine Aminotransfer ALT/SGPT 36 U/L (16-61); Alkaline Phosphatase 216 U/L (45-117); Anion Gap 4 (5-15); BUN 7 mg/dL (7-18); BUN/Creat Ratio 6.4 RATIO (10-20); Calcium,Total 9.1 mg/dL (8.5-10.1); Chloride 101 mmol/L (98-107); EST Glomerular Filtration Rate 78 mL/min (>60); Est Glom Filt Rate - Afr Amer 94 mL/min (>60); Globulin 3.3 g/dL (2.2-4.2); Glucose 83 mg/dL (74-106); Potassium 3.6 mmol/L (3.5-5.1); Protein, Total 7.3 g/dL (6.4-8.2); Sodium Level 130 mmol/L (136-145); Thyroid Stim Hormone (TSH) 1.86 uIU/mL (0.358-3.74)
== END ==
PROVIDERS: PCP Family Medicine Geriatric Medicine; Visit Provider Family Medicine Geriatric Medicine
DX: R53.83 Other fatigue (principal)
CPT/HCPCS: 36415; 80053; 84443; 85025

== ENCOUNTER → 2022-02-12 | Outpatient (CLI) | payer MEDICARE, MEDICAID, SELFPAY ==
[2022-02-12 10:19] LABS: Bacteria 0 SEEN /hpf (None Seen); Mucous, Urine 0 SEEN /hpf (<or=2+); Red Blood Cells-Urine 0 SEEN /hpf (0-5); Squamous Epithelial Cells - UA 0 SEEN /hpf (0-5); White Blood Cells 0 SEEN /hpf (0-5)
[2022-02-12 12:28] LABS: Absolute Lymphocyte Count 1.23 X10^3/uL (0.83-4.51); Absolute Neutrophil Count 6.7 X10^3/uL (2.0-7.7); Basophil# 0.04 X10^3/uL; Basophil% 0.5 % (0-1); Eosinophil# 0.07 X10^3/uL; Eosinophils% 0.8 % (0-5); Hematocrit 46.8 % (40-54); Hemoglobin 15.7 g/dL (13.0-16.5); Lymphocyte # 1.23 X10^3/ul (0.83-4.51); Mean Corp Hgb Conc 33.5 g/dL (32-36); Mean Corpuscular Hgb 31.1 pg (27.0-32.0); Mean Corpuscular Volume 92.7 fL (80-94); Mean Platelet Vol. 10.2 fl (6.2-12.0); Monocyte# 0.74 X10^3/uL; Monocyte% 8.4 % (0-10); NRBC Flagged by Analyzer 0 % (0-5); Neutrophil # 6.67 X10^3/uL (2.7-7.7); Neutrophil % 76.1 % (47-70); Platelet Count 266 K/mm3 (150-450); RBC Distribution Width CV 12.4 % (11.6-14.6); RBC Distribution Width SD 42.1 fl (35.1-43.9); Red Blood Count 5.05 M/mm3 (4.6-6.2); White Blood Count 8.8 K/mm3 (4.4-11.0)
[2022-02-12 12:53] LABS: Color, Urine Yellow (Yellow); Glucose, Dipstick Normal (Normal); Ketone-Dipstick Negative (Negative); Leukocyte Esterase-Dipstick Negative /ul (Negative); Nitrite-Dipstick Negative (Negative); Occult Blood-Urine Negative /ul (Negative); Protein-Dipstick Negative (Negative); Urine Bilirubin Dipstick Negative (Negative); Urine Clarity Clear (Clear); Urine Urobilinogen Normal (Normal); Urine pH 6.5 (5.0 - 8.0)
[2022-02-12 13:40] LABS: ALB/GLOB Ratio 1.2 RATIO (0.9-2.4); AST(SGOT) 18 U/L (15-37); Alanine Aminotransfer ALT/SGPT 39 U/L (16-61); Alkaline Phosphatase 106 U/L (45-117); Anion Gap 7 (5-15); BUN 20 mg/dL (7-18); BUN/Creat Ratio 15.2 RATIO (10-20); Chloride 109 mmol/L (98-107); Creatinine, Serum 1.32 mg/dL (0.70-1.30); EST Glomerular Filtration Rate 63 mL/min (>60); Est Glom Filt Rate - Afr Amer 76 mL/min (>60); Globulin 3.2 g/dL (2.2-4.2); Glucose 120 mg/dL (74-106); Potassium 3.9 mmol/L (3.5-5.1); Protein, Total 7.2 g/dL (6.4-8.2); Sodium Level 140 mmol/L (136-145); Thyroid Stim Hormone (TSH) 2.26 uIU/mL (0.358-3.74)
[2022-02-12 14:32] LABS: Vitamin D,25 Hydroxy 37.4 ng/mL
[2022-02-12 21:16] LABS: Hemoglobin A1c 5.2 % (3.8-5.6)
== END | disposition home or self-care (01) ==
LOC: POLAB3 09:52
PROVIDERS: PCP Family Medicine Geriatric Medicine; Visit Provider Family Medicine Geriatric Medicine
DX: R53.83 Other fatigue (principal); E55.9 Vitamin D deficiency, unspecified; Z79.899 Other long term (current) drug therapy
CPT/HCPCS: 36415; 80053; 80178; 81001; 82306; 83036; 84443; 85025

== ENCOUNTER → 2022-08-23 | Outpatient (CLI) | payer MEDICARE, MEDICAID, SELFPAY ==
[2022-08-23 13:08] LABS: Hematocrit 46.3 % (40-54); Hemoglobin 15.7 g/dL (13.0-16.5); Mean Corp Hgb Conc 33.9 g/dL (32-36); Mean Corpuscular Hgb 31.1 pg (27.0-32.0); Mean Corpuscular Volume 91.7 fL (80-94); Mean Platelet Vol. 10.4 fl (6.2-12.0); Platelet Count 310 K/mm3 (150-450); RBC Distribution Width CV 12.2 % (11.6-14.6); RBC Distribution Width SD 41.1 fl (35.1-43.9); Red Blood Count 5.05 M/mm3 (4.6-6.2); White Blood Count 9.1 K/mm3 (4.4-11.0)
[2022-08-23 13:28] LABS: ALB/GLOB Ratio 1.3 RATIO (0.9-2.4); AST(SGOT) 20 U/L (15-37); Alanine Aminotransfer ALT/SGPT 43 U/L (16-61); Albumin, Serum 3.9 g/dL (3.2-5.0); Alkaline Phosphatase 102 U/L (45-117); Anion Gap 4 (5-15); BUN 11 mg/dL (7-18); BUN/Creat Ratio 9.2 RATIO (10-20); Calcium,Total 9.5 mg/dL (8.5-10.1); Chloride 109 mmol/L (98-107); Cholesterol 164 mg/dL (200); Creatinine, Serum 1.19 mg/dL (0.70-1.30); EST Glomerular Filtration Rate 70 mL/min (>60); Est Glom Filt Rate - Afr Amer 85 mL/min (>60); Globulin 3.1 g/dL (2.2-4.2); Glucose 88 mg/dL (74-106); High Density Lipoprotein 44 mg/dL; Potassium 3.9 mmol/L (3.5-5.1); Sodium Level 138 mmol/L (136-145); Triglycerides 130 mg/dL; Very Low Density Lipoprotein 26 mg/dL (5-40)
[2022-08-28 15:38] LABS: M R Staph aureus DNA By PCR Negative (Negative); Probe Check PASS; Staph aureus DNA By PCR POSITIVE (Negative)
== END | disposition home or self-care (01) ==
LOC: POLAB3 09:42
PROVIDERS: PCP Family Medicine Geriatric Medicine; Visit Provider Psychiatry & Neurology Child & Adolescent Psychiatry
DX: Z79.899 Other long term (current) drug therapy (principal); S61.401A Unspecified open wound of right hand, initial encounter
CPT/HCPCS: 36415; 80053; 80061; 80178; 83036; 85027; 87070; 87075; 87077; 87186; 87205; 87640

== ENCOUNTER 2022-08-29 08:22 | Outpatient (RCR) | payer MEDICARE, MEDICAID, SELFPAY ==
[2022-08-29 08:51] VITALS: BP 119/86; PULSE 75; RESP 20; TEMP 35.9; BMI 25.6
--- NOTE | 2022-08-29 09:35 | HP.PCM_ITS ---
History of Present Illness Date of Service: 08/29/22 Chief Complaint: Right Hand Wound History of Wound: Mr. Guerrero is a 46 year old referred to the Center by his PCP due to nonhealing right hand wound. Said to have sustained wound about 3 weeks ago following a nervous episode. Picks a lot when he is nervous. Had a blister in that area which he constantly picked at. Has been on cephalexin and doxycycline prescribed by his PCP. No chills, fever or otherwise feeling of unwell. [facility] Medical History (Updated 08/29/22 @ 09:[address] Lise Marcial MD) Intellectual disability Open wound of right hand Home Medications cholecalciferol (vitamin D3) 50 mcg (2,000 unit) capsule (Vitamin D3) 2,000 unit PO DAILY SUPPLEMENT 02/10/17 [History Last Taken 02/10/17] lithium carbonate 600 mg capsule 600 mg PO BID SUPPLEMENT 02/10/17 [History Last Taken 02/10/17] olanzapine 15 mg tablet (Zyprexa) 15 mg PO QHS BIPOLAR 02/10/17 [History Last Taken 02/09/17] phenytoin 50 mg chewable tablet (Dilantin Infatabs) 50 mg PO QHS SEIZURE 02/10/17 [History Last Taken 02/09/17] phenytoin sodium extended 100 mg capsule (Dilantin Extended) 200 mg PO QHS SEIZURE 02/10/17 [History Last Taken 02/09/17] tamsulosin 0.4 mg capsule 0.4 mg PO DAILY URINARY EASE 02/10/17 [History Last Taken 02/09/17] diazepam 5 mg tablet 5 mg RECTALLY PRN PRN Seizure #10 tabs 07/26/18 [Rx Last Taken Unknown] famotidine 40 mg tablet (Pepcid) 40 mg PO DAILY 07/26/18 [History Last Taken Unknown] alprazolam 2 mg tablet 2 mg PO DAILY PRN Agitation 08/22/20 [History Last Taken Unknown] lactulose 10 gram/15 mL oral solution 30 gm PO DAILY 08/22/20 [History Last Taken Unknown] levocetirizine 5 mg tablet 5 mg PO DAILY 08/22/20 [History Last Taken Unknown] linaclotide 145 mcg capsule 145 mcg PO DAILY 08/22/20 [History Last Taken Unknown] Allergy/AdvReac Type Severity Reaction Status Date / Time No Known Allergies Allergy Verified 08/29/22 09:07 Social History (Updated 05/30/20 @ 07:31 by Ligia Gonzalez NP, [employer]AL[employer] EXPERT-C) Smoking Status: Never smoker ROS Constitutional Constitutional: Denies change in weight, chills, difficulty sleeping, excessive sweating, fatigue or lethargy Eyes Eyes: Denies blindness, blind spots, bloody eye, diplopia or discharge from eye(s) ENT HEENT: Denies ear discharge, foreign body in nose, halitosis, hearing loss or ho arseness Cardiovascular Cardiovascular: Denies abdominal pain, claudication, clubbing, cold extremities, cyanosis or diaphoresis Respiratory/Chest Respiratory/Chest: Denies difficulty clearing secretions, dry cough, dyspnea on exertion, excessive phlegm production, hemoptysis or hoarseness Gastrointestinal Gastrointestinal: Denies change in bowel habits, coffee ground emesis, cramping, diarrhea, dry heaves or excessive flatus Genitourinary Genitourinary: Denies difficulty urinating, flank pain, hematuria, penile discharge or penile swelling Musculoskeletal Musculoskeletal: Denies difficulty walking, joint swelling, loss of height, muscle spasms or muscle weakness Integumentary Integumentary: Denies bleeding lesions, erythema, furuncle, hirsutism or jaundice Neurologic Neurologic: Reports abnormal speech; Denies abnormal hearing, behavior changes, loss of vision or tremor(s) Psychiatric Psychiatric: Denies auditory hallucinations, hallucinations, irritability, tactile hallucinations or visual hallucinations Endocrine Endocrinology: Denies change in body appearance, cold intolerance, flushing, increase in ring/shoe/hat size or polyphagia Hematologic/Lymphatic Hematologic/Lymphatic: Denies easy bleeding or easy bruising Allergic/Immunologic Allergic/Immunologic: Denies lip swelling, rhinitis, throat swelling, tongue swelling, hives or wheezing Vital Signs Vital Signs Vital Signs: 08/29/22 08:51 Temperature 96.6 F L Temperature Source Temporal Pulse Rate 75 Respiratory Rate 20 H Blood Pressure 119/86 H Blood Pressure Mean 97 Blood Pressure Source Monitor Weight Weight: 149 lb 7.82 oz Body Mass Index (BMI) 25.6 Physical Exam Const alert and no apparent distress General Appearance: cooperative, comfortable and well kempt HEENT normocephalic and head/scalp atraumatic Neck full ROM and supple General: normal visual inspection Resp normal respiratory effort Effort and Inspection: able to speak in complete sentences Extremity no clubbing, cyanosis or edema Skin Wounds: wounds noted Neuro moves all extremities and no focal motor deficits Psych cooperative and affect normal Debridement Note Debridement Note Wound debrided: Right Hand Type of Debridement: Excisional debridement Anesthesia Used: 5% Lidocaine Gel Depth: Down to and including healthy tissue and in the subcutaneous layer Percentage of wound debrided: 100 Instrument Used: 3mm curette Tissue Removed: Slough and devitalized tissue Severity: Fat Layer Exposed Amount of bleeding with debridement: Mild Bleeding Controlled with: Pressure Patient tolerated procedure: Patient tolerated procedure well Post-Debridement Measurements and Additional Note: Post-Debridement Measurements/Treatment - Nurse 1 - General Ulcer Assessment Start: 08/29/22 08:46 Freq: Status: Active Protocol: JOSE LUIS Activity Type Activity Date Activity User E-sign Co-sign Detail Recorded Client Recorded Date Recorded By Document 08/29/22 08:51 DL [id number] 08/29/22 09:04 DL 08/29/22 08:51 BIANKA - Today's Visit Information Type of service Initial Visit Arrival Mode Ambulatory Transfer Assistance None Patient Identification Verified (Name & Yes ) Patient Requires Transmission-Based No Precautions Blood Sugar Stated by Patient Height and Weight Height 5 ft 4 in Weight 149 lb 7.82 oz Weight in Pounds 149.5 lbs Body Mass Index (BMI) 25.6 BMI Classification Overweight BSA - [place] 1.73 Vital Signs Temperature (97.8 F-99.1 F) 96.6 F L Temperature Source Temporal Pulse Rate (60-100) 75 Pulse Location Monitor Respiratory Rate (12-18) 20 H Respiratory rate source Observation Blood Pressure (90/60-120/80) 119/86 H Blood Pressure Mean 97 Source Monitor Pain Scale: 0-10 Numeric Is Patient Pain Free? Yes - Nurse 1 - General Ulcer Measurement Start: 08/29/22 08:46 Freq: Status: Active Protocol: Activity Type Activity Date Activity User E-sign Co-sign Detail Recorded Client Recorded Date Recorded By Document 08/29/22 08:51 RANDELL [id number] 08/29/22 09:04 DL 08/29/22 08:51 Wound Center Nurse 1 #1 R Hand -Current Size (cm) - Length 0.1 -Current Size (cm) - Width 0.1 -Current Size (cm) - Depth 0.1 -Total Square Cm 0.01 -Photo Taken Yes -Exudate Amt None Present -Wound Margin Distinct, Outline Attached -Granulation Amt Large (67-100%) -Granulation Quality [place] -Necrosis Amt None Present (0 %) -Structure Exposed N/A -Texture (Farrah-wound Skin Appearance) Scarring -Moisture (Farrah-wound Skin Appearance) No Abnormality -Color (Farrah-wound Skin Appearance) No Abnormality -Temperature (Farrah-wound Skin No Abnormality Appearance) (Pt Warm) -Ulcer Cleansing Rinsed/ Irrigated with Saline -Foul Odor after Cleansing No -Anesthetic Used 5% Lidocaine Gel WC - Nurse 2 - General Ulcer CM Notes Start: 08/29/22 08:46 Freq: Status: Active Protocol: Activity Type Activity Date Activity User E-sign Co-sign Detail Recorded Client Recorded Date Recorded By Document 08/29/22 09:23 MW [id number] 08/29/22 09:31 MW 08/29/22 09:23 Wound Center Nurse 2 -Time 09:23 -Correct Patient Yes -Correct Side, Site, Position Yes -Correct Procedure Yes -Procedure Performed Yes -Type of Procedure Debridement -Clinical Debridement Subcutaneous -Tissue Removed Subcutaneous -Post Debridement (cm) - Length 0.9 -Post Debridement (cm) - Width 0.2 -Post Debridement (cm) - Depth 0.1 -Total Square (Post) (cm) 0.18 -Area of Debridement (cm) - Length 0.9 -Area of Debridement (cm) - Width 0.2 -Total Square (Area) (cm) 0.18 -Tunneling No -Undermining/Tunneling No -Circular Undermining No -Wound/Ulcer Outcome Not Healed -Ulcer Cleansing Rinsed/ Irrigated with Saline -Foul Odor after Cleansing No -Bioengineered Tissue No -Bleeding Controlled with Pressure -Treatment Response Procedure Tolerated Well -Offloading No -Debridement - Subq, 1st 20sq cm Yes Pain Scale: 0-10 Numeric Is Patient Pain Free? Yes Charges/Coding Visit Charges Office Visits / Consults: 76205 OV L3 New Procedures Integumentary 111xxx-113xx: [id number] Mariann subq tissue 20 sq cm/< Assessment/Plan Assessment/Plan (1) Open wound of right hand: CODE(S): S61.401A - Unspecified open wound of right hand, initial encounter PLAN: Penetrating, Traumatic Wound. (2) Intellectual disability: CODE(S): F79 - Unspecified intellectual disabilities PLAN: Plan Debridement done as documented above, procedure was well-tolerated. Currently on Keflex and doxycycline, no cultures taken at this time. Promogran and Adaptic, change every other day. Wrap hand to avoid contact. Increase protein intake, vitamin C D and zinc. Their questions were answered and they were advised to call with any further questions or concerns. Follow-up in a week or sooner if needed. This note was generated with [employer] dictation software. It may contain incorrect words, spelling, and punctuation that were not noted in checking the note before signing.
== END 2022-09-03 23:59 | disposition home or self-care (01) ==
LOC: WC 08:22
PROVIDERS: PCP Family Medicine Geriatric Medicine; Visit Provider Internal Medicine
DX: S61.401A Unspecified open wound of right hand, initial encounter (principal); F79 Unspecified intellectual disabilities; M79.641 Pain in right hand; S60.521A Blister (nonthermal) of right hand, initial encounter; L03.113 Cellulitis of right upper limb; E55.9 Vitamin D deficiency, unspecified
CPT/HCPCS: 11042; 99203; G0463

== ENCOUNTER 2022-09-05 09:11 | Outpatient (RCR) | payer MEDICARE, MEDICAID, SELFPAY ==
[2022-09-04 00:50] VITALS: BP 119/86; PULSE 75; RESP 20; TEMP 35.9; BMI 25.6
[2022-09-05 09:12] VITALS: BP 98/65; PULSE 59; RESP 16; TEMP 36.3; BMI 25.6
--- NOTE | 2022-09-05 12:50 | PCM.WC.PN ---
History of Present Illness Date of Service: 09/05/22 Chief Complaint: Right Hand Wound History of Wound: Mr. Guerrero is a 46 year old referred to the Center by his PCP due to nonhealing right hand wound. Said to have sustained wound about 3 weeks ago following a nervous episode. Picks a lot when he is nervous. Had a blister in that area which he constantly picked at. Has been on cephalexin and doxycycline prescribed by his PCP. No chills, fever or otherwise feeling of unwell. Progress of Wound: Largely healed. No new concerns at this time. Objective Data Objective Data Vital Signs: Vital Signs Temp Pulse Resp BP O2 Del Method 97.3 F L 59 L 16 98/65 Room Air 09/05/22 09:12 09/05/22 09:12 09/05/22 09:12 09/05/22 09:12 09/05/22 09:12 Oxygen Delivery Method Room Air Weight: 149 lb 7.82 oz Body Mass Index (BMI) 25.6 Charges/Coding Visit Charges Office Visits / Consults: 94715 OV L3 Est Physical Exam Const alert and no apparent distress General Appearance: cooperative, comfortable and well kempt HEENT normocephalic and head/scalp atraumatic Neck full ROM and supple General: normal visual inspection Resp normal respiratory effort Effort and Inspection: able to speak in complete sentences Extremity no clubbing, cyanosis or edema Skin Wounds: wounds noted Neuro moves all extremities and no focal motor deficits Psych cooperative and affect normal Debridement Note Debridement Note Post-Debridement Measurements and Additional Note: Post-Debridement Measurements/Treatment - Nurse 1 - General Ulcer Assessment Start: 09/05/22 09:12 Freq: Status: Active Protocol: JOSE LUIS Activity Type Activity Date Activity User E-sign Co-sign Detail Recorded Client Recorded Date Recorded By Document 09/05/22 09:12 [facility] [id number] 09/05/22 09:18 [facility] 09/05/22 09:12 - Today's Visit Information Type of service 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 ) Arrival Mode Ambulatory Transfer Assistance None Accompanied by caregiver Patient Identification Verified (Name & Yes ) Patient Requires Transmission-Based No Precautions Height and Weight Body Mass Index (BMI) 25.6 BMI Classification Overweight Vital Signs Temperature (97.8 F-99.1 F) 97.3 F L Temperature Source Temporal Pulse Rate (60-100) 59 L Pulse Location Monitor Respiratory Rate (12-18) 16 Respiratory rate source Observation Oxygen Delivery Method Room Air Blood Pressure (90/60-120/80) 98/65 Blood Pressure Mean (mm Hg) 76 Source Monitor Position Sitting Blood Pressure Location Left Arm History Since Last Visit- (Skip if this is Patient's initial visit) Have you changed medications since your No last visit? Any new allergies or adverse reactions No Had a fall/change in ADL's that may No increase risk of falls Signs or symptoms of abuse and/or No neglect since last visit Have you been in the hospital since your No last visit? Has dressing in place as prescribed Yes Has compression in place as prescribed N/A Has offloadiing in place as prescribed N/A Experienced any changes in pain level or No management Left Footwear Regular Shoe Right Footwear Regular Shoe Pain Scale: 0-10 Numeric Is Patient Pain Free? Yes WC - Nurse 1 - General Ulcer Measurement Start: 09/05/22 09:12 Freq: Status: Active Protocol: Activity Type Activity Date Activity User E-sign Co-sign Detail Recorded Client Recorded Date Recorded By Document 09/05/22 09:12 [facility] [id number] 09/05/22 09:18 [facility] 09/05/22 09:12 Wound Center Nurse 1 #1 R Hand -Combined with other wound No -Current Size (cm) - Length 0.1 -Current Size (cm) - Width 0.1 -Current Size (cm) - Depth 0.1 -Total Square Cm 0.01 -Date of Last Picture (Recall this 09/05/22 field) -Photo Taken Yes -Epithelialization Large 67-100% -Tunneling No -Undermining/Tunneling No -Circular Undermining No -Exudate Amt None Present -Wound Margin Flat & Intact -Texture (Farrah-wound Skin Appearance) Assessed, Scarring -Moisture (Farrah-wound Skin Appearance) Assessed,Dry/ Scaly -Color (Farrah-wound Skin Appearance) Assessed -Temperature (Farrah-wound Skin No Abnormality Appearance) (Pt Warm) -Tenderness on Palpation (Farrah-wound No Skin Appearance) -Ulcer Cleansing Rinsed/ Irrigated with Saline -Foul Odor after Cleansing No -Anesthetic Used 5% Lidocaine Gel WC - Nurse 2 - General Ulcer CM Notes Start: 09/05/22 09:12 Freq: Status: Active Protocol: Activity Type Activity Date Activity User E-sign Co-sign Detail Recorded Client Recorded Date Recorded By Document 09/05/22 09:58 MW [id number] 09/05/22 10:01 MW 09/05/22 09:58 Wound Center Nurse 2 -Time 10:00 -Correct Patient Yes -Correct Side, Site, Position Yes -Correct Procedure Yes -Procedure Performed No -Post Debridement (cm) - Length 0 -Post Debridement (cm) - Width 0 -Total Square (Post) (cm) 0 -Tunneling No -Undermining/Tunneling No -Circular Undermining No -Wound/Ulcer Outcome Healed- Epithelialized Pain Scale: 0-10 Numeric Is Patient Pain Free? Yes - Nurse 3 - General Ulcer D/C NN Start: 09/05/22 09:12 Freq: Status: Active Protocol: Activity Type Activity Date Activity User E-sign Co-sign Detail Recorded Client Recorded Date Recorded By Document 09/05/22 10:01 MW [id number] 09/05/22 10:02 MW 09/05/22 10:01 Wound Care Center Nurse 3 #1 R Hand -Ulcer Cleansing Rinsed/ Irrigated with Saline -Foul Odor after Cleansing No -Negative Pressure Wound Therapy N/A -Primary Dressing Applied NonAdherent Contact Layer -Primary Dressing Covered/Secured with Dry Gauze & Roll Gauze, Secured with Tape Pain Scale: 0-10 Numeric Is Patient Pain Free? Yes Teaching: Wound Center Discharge Instructions -Person Taught Patient,Primary Caregiver -Teaching Method Discussion -Response to teaching Verbalize understanding WC - Visit Discharge Discharge Condition Stable Ambulatory Status Ambulatory Transportation Private Auto Accompanied by CAREGIVER Medication Reconcilliation completed & No provided to patient/care provider Clinical Summary of Care Provided Yes Assessment/Plan Assessment/Plan (1) Open wound of right hand: CODE(S): S61.401A - Unspecified open wound of right hand, initial encounter PLAN: Penetrating, Traumatic Wound. (2) Intellectual disability: CODE(S): F79 - Unspecified intellectual disabilities PLAN: Plan Debridement completed today. Healed for the most part. Copious amount of Vaseline, Adaptic and gauze for 2 weeks. Wrap hand to avoid contact. Increase protein intake, vitamin C, D and zinc. Their questions were answered and they were advised to call with any further questions or concerns. Discharge from wound clinic. This note was generated with [employer] software. It may contain incorrect words, spelling, and punctuation that were not noted in checking the note before signing.
== END 2022-09-05 16:09 | disposition home or self-care (01) ==
LOC: WC 09:11
PROVIDERS: PCP Family Medicine Geriatric Medicine; Visit Provider Internal Medicine
DX: S61.401A Unspecified open wound of right hand, initial encounter (principal); F79 Unspecified intellectual disabilities
CPT/HCPCS: 99213; G0463

== ENCOUNTER 2023-02-18 09:30 | Outpatient (CLI) | payer MEDICARE, MEDICAID, SELFPAY ==
[2023-02-18 13:32] LABS: ALB/GLOB Ratio 1.2 RATIO (0.9-2.4); AST(SGOT) 22 U/L (15-37); Alanine Aminotransfer ALT/SGPT 39 U/L (16-61); Alkaline Phosphatase 111 U/L (45-117); Anion Gap 2 (5-15); BUN 12 mg/dL (7-18); BUN/Creat Ratio 9.1 RATIO (10-20); Calcium,Total 9.5 mg/dL (8.5-10.1); Chloride 111 mmol/L (98-107); Cholesterol 150 mg/dL (200); Creatinine, Serum 1.32 mg/dL (0.70-1.30); EST Glomerular Filtration Rate 62 mL/min (>60); Est Glom Filt Rate - Afr Amer 75 mL/min (>60); Globulin 3.2 g/dL (2.2-4.2); Glucose 85 mg/dL (74-106); High Density Lipoprotein 43 mg/dL; Potassium 3.8 mmol/L (3.5-5.1); Protein, Total 7.2 g/dL (6.4-8.2); Sodium Level 139 mmol/L (136-145); Thyroid Stim Hormone (TSH) 2.23 uIU/mL (0.358-3.74); Triglycerides 122 mg/dL; Very Low Density Lipoprotein 24 mg/dL (5-40)
[2023-02-18 17:55] LABS: Absolute Lymphocyte Count 1.35 X10^3/uL (0.83-4.51); Absolute Neutrophil Count 6.8 X10^3/uL (2.0-7.7); Basophil# 0.07 X10^3/uL; Basophil% 0.8 % (0-1); Eosinophil# 0.16 X10^3/uL; Eosinophils% 1.7 % (0-5); Hematocrit 49.8 % (40-54); Hemoglobin 16.3 g/dL (13.0-16.5); Lymphocyte # 1.35 X10^3/ul (0.83-4.51); Lymphocyte % 14.7 % (19-41); Mean Corp Hgb Conc 32.7 g/dL (32-36); Mean Corpuscular Volume 94.9 fL (80-94); Mean Platelet Vol. 10.4 fl (6.2-12.0); Monocyte% 8.7 % (0-10); NRBC Flagged by Analyzer 0 % (0-5); Neutrophil # 6.76 X10^3/uL (2.7-7.7); Neutrophil % 73.9 % (47-70); Platelet Count 256 K/mm3 (150-450); RBC Distribution Width CV 12.2 % (11.6-14.6); RBC Distribution Width SD 42.5 fl (35.1-43.9); Red Blood Count 5.25 M/mm3 (4.6-6.2); White Blood Count 9.2 K/mm3 (4.4-11.0)
== END 2023-02-18 23:59 | disposition home or self-care (01) ==
PROVIDERS: PCP Family Medicine Geriatric Medicine; Visit Provider Family Medicine Geriatric Medicine
DX: R53.83 Other fatigue (principal); E78.5 Hyperlipidemia, unspecified
CPT/HCPCS: 36415; 80053; 80061; 84443; 85025

== ENCOUNTER → 2023-03-19 | Outpatient (CLI) | payer MEDICARE, MEDICAID, SELFPAY ==
[2023-03-19 12:11] LABS: Hematocrit 49.4 % (40-54); Hemoglobin 16.3 g/dL (13.0-16.5); Mean Corpuscular Hgb 31.1 pg (27.0-32.0); Mean Corpuscular Volume 94.3 fL (80-94); Mean Platelet Vol. 9.8 fl (6.2-12.0); Platelet Count 246 K/mm3 (150-450); RBC Distribution Width CV 12.1 % (11.6-14.6); RBC Distribution Width SD 42.1 fl (35.1-43.9); Red Blood Count 5.24 M/mm3 (4.6-6.2); White Blood Count 5.8 K/mm3 (4.4-11.0)
[2023-03-19 12:41] LABS: AST(SGOT) 26 U/L (15-37); Alanine Aminotransfer ALT/SGPT 64 U/L (16-61); Albumin, Serum 3.5 g/dL (3.2-5.0); Alkaline Phosphatase 122 U/L (45-117); Anion Gap 3 (5-15); BUN 12 mg/dL (7-18); BUN/Creat Ratio 10.8 RATIO (10-20); Calcium,Total 9.6 mg/dL (8.5-10.1); Chloride 112 mmol/L (98-107); Cholesterol 161 mg/dL (200); Creatinine, Serum 1.11 mg/dL (0.70-1.30); EST Glomerular Filtration Rate 76 mL/min (>60); Est Glom Filt Rate - Afr Amer 92 mL/min (>60); Globulin 3.6 g/dL (2.2-4.2); Glucose 91 mg/dL (74-106); High Density Lipoprotein 39 mg/dL; Potassium 4.1 mmol/L (3.5-5.1); Protein, Total 7.1 g/dL (6.4-8.2); Sodium Level 142 mmol/L (136-145); Triglycerides 164 mg/dL; Very Low Density Lipoprotein 33 mg/dL (5-40)
[2023-03-19 13:04] LABS: Hemoglobin A1c 5.2 % (3.8-5.6)
== END | disposition home or self-care (01) ==
LOC: POLAB3 11:33
PROVIDERS: Psychiatry & Neurology Child & Adolescent Psychiatry; PCP Family Medicine Geriatric Medicine; Visit Provider Family Medicine Geriatric Medicine
DX: Z79.899 Other long term (current) drug therapy (principal)
CPT/HCPCS: 36415; 80053; 80061; 80178; 83036; 85027

== ENCOUNTER → 2024-01-21 | Outpatient (CLI) | payer MEDICARE, MEDICAID, SELFPAY ==
[2024-01-21 08:07] LABS: Hematocrit 46.7 % (40-54); Hemoglobin 15.9 g/dL (13.0-16.5); Mean Corpuscular Hgb 31.1 pg (27.0-32.0); Mean Corpuscular Volume 91.4 fL (80-94); Mean Platelet Vol. 9.7 fl (6.2-12.0); Platelet Count 292 K/mm3 (150-450); RBC Distribution Width CV 12.2 % (11.6-14.6); RBC Distribution Width SD 40.5 fl (35.1-43.9); Red Blood Count 5.11 M/mm3 (4.6-6.2); White Blood Count 8.1 K/mm3 (4.4-11.0)
[2024-01-21 08:34] LABS: Hemoglobin A1c 5.1 % (3.8-5.6)
[2024-01-21 08:47] LABS: ALB/GLOB Ratio 1.2 RATIO (0.9-2.4); AST(SGOT) 18 U/L (15-37); Alanine Aminotransfer ALT/SGPT 47 U/L (16-61); Albumin, Serum 3.8 g/dL (3.2-5.0); Alkaline Phosphatase 120 U/L (45-117); Anion Gap 1 (5-15); BUN 18 mg/dL (7-18); Calcium,Total 9.8 mg/dL (8.5-10.1); Chloride 112 mmol/L (98-107); Cholesterol 185 mg/dL (200); EST Glomerular Filtration Rate 69 mL/min (>60); Est Glom Filt Rate - Afr Amer 84 mL/min (>60); Globulin 3.2 g/dL (2.2-4.2); Glucose 106 mg/dL (74-106); High Density Lipoprotein 44 mg/dL; Potassium 3.9 mmol/L (3.5-5.1); Sodium Level 138 mmol/L (136-145); Thyroid Stim Hormone (TSH) 3.61 uIU/mL (0.358-3.74); Triglycerides 151 mg/dL; Very Low Density Lipoprotein 30 mg/dL (5-40)
== END | disposition home or self-care (01) ==
LOC: LAB 07:27
PROVIDERS: PCP Family Medicine Geriatric Medicine; Referring Provider Psychiatry & Neurology Child & Adolescent Psychiatry; Visit Provider Psychiatry & Neurology Child & Adolescent Psychiatry
DX: Z79.899 Other long term (current) drug therapy (principal)
CPT/HCPCS: 36415; 80053; 80061; 80178; 83036; 84443; 85027

== ENCOUNTER → 2024-03-05 | Outpatient (CLI) | payer MEDICARE, MEDICAID, SELFPAY ==
[2024-03-05 09:32] LABS: Absolute Lymphocyte Count 1.93 X10^3/uL (0.83-4.51); Absolute Neutrophil Count 6.4 X10^3/uL (2.0-7.7); Basophil# 0.06 X10^3/uL; Basophil% 0.6 % (0-1); Eosinophil# 0.27 X10^3/uL; Eosinophils% 2.8 % (0-5); Hematocrit 46.2 % (40-54); Lymphocyte # 1.93 X10^3/ul (0.83-4.51); Lymphocyte % 19.8 % (19-41); Mean Corp Hgb Conc 34.6 g/dL (32-36); Mean Corpuscular Hgb 31.2 pg (27.0-32.0); Mean Corpuscular Volume 90.1 fL (80-94); Mean Platelet Vol. 9.7 fl (6.2-12.0); Monocyte# 1.02 X10^3/uL; Monocyte% 10.5 % (0-10); NRBC Flagged by Analyzer 0 % (0-5); Neutrophil # 6.42 X10^3/uL (2.7-7.7); Platelet Count 313 K/mm3 (150-450); RBC Distribution Width CV 12.2 % (11.6-14.6); RBC Distribution Width SD 40.3 fl (35.1-43.9); Red Blood Count 5.13 M/mm3 (4.6-6.2); White Blood Count 9.7 K/mm3 (4.4-11.0)
[2024-03-05 10:09] LABS: Vitamin D,25 Hydroxy 46.8 ng/mL
[2024-03-05 10:19] LABS: ALB/GLOB Ratio 1.2 RATIO (0.9-2.4); AST(SGOT) 22 U/L (15-37); Alanine Aminotransfer ALT/SGPT 42 U/L (16-61); Albumin, Serum 3.8 g/dL (3.2-5.0); Alkaline Phosphatase 133 U/L (45-117); Anion Gap 6 (5-15); BUN 13 mg/dL (7-18); BUN/Creat Ratio 10.5 RATIO (10-20); Calcium,Total 9.7 mg/dL (8.5-10.1); Chloride 108 mmol/L (98-107); Cholesterol 177 mg/dL (200); Creatinine, Serum 1.24 mg/dL (0.70-1.30); EST Glomerular Filtration Rate 67 mL/min (>60); Est Glom Filt Rate - Afr Amer 81 mL/min (>60); Globulin 3.3 g/dL (2.2-4.2); Glucose 101 mg/dL (74-106); High Density Lipoprotein 43 mg/dL; Potassium 3.8 mmol/L (3.5-5.1); Protein, Total 7.1 g/dL (6.4-8.2); Sodium Level 136 mmol/L (136-145); Thyroid Stim Hormone (TSH) 2.47 uIU/mL (0.358-3.74); Triglycerides 166 mg/dL; Very Low Density Lipoprotein 33 mg/dL (5-40)
== END | disposition home or self-care (01) ==
LOC: POLAB3 09:05
PROVIDERS: PCP Family Medicine Geriatric Medicine; Visit Provider Family Medicine Geriatric Medicine
DX: R53.83 Other fatigue (principal); E55.9 Vitamin D deficiency, unspecified; E78.5 Hyperlipidemia, unspecified
CPT/HCPCS: 36415; 80053; 80061; 82306; 84443; 85025

== ENCOUNTER → 2024-10-28 | Outpatient (CLI) | payer MEDICARE, MEDICAID, SELFPAY ==
[2024-10-28 10:02] LABS: Bacteria 0 SEEN /hpf (None Seen); Mucous, Urine 0 SEEN /hpf (<or=2+); Squamous Epithelial Cells - UA 0 SEEN /hpf (0-5); White Blood Cells 0 SEEN /hpf (0-5)
[2024-10-28 10:24] LABS: Absolute Lymphocyte Count 1.81 X10^3/uL (0.83-4.51); Basophil# 0.06 X10^3/uL; Basophil% 0.7 % (0-1); Eosinophil# 0.33 X10^3/uL; Eosinophils% 3.7 % (0-5); Hematocrit 46.3 % (40-54); Hemoglobin 16.2 g/dL (13.0-16.5); Lymphocyte # 1.81 X10^3/ul (0.83-4.51); Lymphocyte % 20.3 % (19-41); Mean Corpuscular Hgb 31.9 pg (27.0-32.0); Mean Corpuscular Volume 91.1 fL (80-94); Mean Platelet Vol. 9.5 fl (6.2-12.0); Monocyte# 0.68 X10^3/uL; Monocyte% 7.6 % (0-10); NRBC Flagged by Analyzer 0 % (0-5); Neutrophil # 6.02 X10^3/uL (2.7-7.7); Neutrophil % 67.4 % (47-70); Platelet Count 254 K/mm3 (150-450); RBC Distribution Width CV 12.8 % (11.6-14.6); RBC Distribution Width SD 41.8 fl (35.1-43.9); Red Blood Count 5.08 M/mm3 (4.6-6.2); White Blood Count 8.9 K/mm3 (4.4-11.0)
[2024-10-28 10:32] LABS: Color, Urine Yellow (Yellow); Glucose, Dipstick Normal (Normal); Ketone-Dipstick Negative (Negative); Leukocyte Esterase-Dipstick Negative /ul (Negative); Nitrite-Dipstick Negative (Negative); Occult Blood-Urine Negative /ul (Negative); Protein-Dipstick Negative (Negative); Specific Gravity, Urine 1.005 (1.002-1.030); Urine Bilirubin Dipstick Negative (Negative); Urine Clarity Clear (Clear); Urine Urobilinogen Normal (Normal)
[2024-10-28 10:37] LABS: Red Blood Cells-Urine 0 SEEN /hpf (0-5)
[2024-10-28 12:14] LABS: Lithium 1.51 mmol/L (0.60-1.20)
[2024-10-28 12:42] LABS: ALB/GLOB Ratio 1.3 RATIO (0.9-2.4); AST(SGOT) 30 U/L (<=37); Alanine Aminotransfer ALT/SGPT 49 U/L (<=46); Alkaline Phosphatase 154 U/L (40-129); Anion Gap 13 (5-15); BUN 11 mg/dL (4-19); BUN/Creat Ratio 8.1 RATIO (10-20); Calcium,Total 9.8 mg/dL (7.6-11.0); Carbon Dioxide 19.2 mmol/L (21.0-32.0); Chloride 114 mmol/L (98-108); Creatinine, Serum 1.35 mg/dL (0.70-1.20); EST Glomerular Filtration Rate 66 (>60); Globulin 3.1 g/dL (2.2-4.2); Glucose 87 mg/dL (70-99); Potassium 4.3 mmol/L (3.3-5.1); Protein, Total 7.2 g/dL (5.9-8.4); Sodium Level 146 mmol/L (133-145); Total Bilirubin 0.62 mg/dL (0.00-1.30)
== END | disposition home or self-care (01) ==
LOC: POLAB3 09:58
PROVIDERS: PCP Family Medicine Geriatric Medicine; Visit Provider Family Medicine Geriatric Medicine
DX: E87.0 Hyperosmolality and hypernatremia (principal); G40.909 Epilepsy, unspecified, not intractable, without status epilepticus; E78.5 Hyperlipidemia, unspecified; G93.40 Encephalopathy, unspecified; R68.83 Chills (without fever)
CPT/HCPCS: 36415; 80053; 80177; 80178; 81001; 84443; 85025; 87631

== ENCOUNTER → 2025-01-14 | Outpatient (CLI) | payer MEDICARE, MEDICAID, SELFPAY ==
[2025-01-14 10:45] LABS: Lithium 1.08 mmol/L (0.60-1.20)
[2025-01-14 14:45] LABS: ALB/GLOB Ratio 1.7 RATIO (0.9-2.4); AST(SGOT) 21 U/L (<=37); Alanine Aminotransfer ALT/SGPT 29 U/L (<=46); Albumin, Serum 4.6 g/dL (3.5-5.0); Alkaline Phosphatase 117 U/L (40-129); Anion Gap 12 (5-15); BUN 12 mg/dL (4-19); BUN/Creat Ratio 9.1 RATIO (10-20); Calcium,Total 10.6 mg/dL (7.6-11.0); Carbon Dioxide 22.2 mmol/L (21.0-32.0); Chloride 113 mmol/L (98-108); Creatinine, Serum 1.27 mg/dL (0.70-1.20); EST Glomerular Filtration Rate 70 (>60); Globulin 2.7 g/dL (2.2-4.2); Glucose 129 mg/dL (70-99); Potassium 3.8 mmol/L (3.3-5.1); Protein, Total 7.3 g/dL (5.9-8.4); Sodium Level 147 mmol/L (133-145); Total Bilirubin 0.52 mg/dL (0.00-1.30)
== END | disposition home or self-care (01) ==
PROVIDERS: PCP Family Medicine Geriatric Medicine; Referring Provider Psychiatry & Neurology Child & Adolescent Psychiatry; Visit Provider Psychiatry & Neurology Child & Adolescent Psychiatry
DX: Z79.899 Other long term (current) drug therapy (principal)
CPT/HCPCS: 36415; 80053; 80178

== ENCOUNTER → 2025-03-17 | Outpatient (CLI) | payer MEDICARE, MEDICAID, SELFPAY ==
[2025-03-17 13:32] LABS: Hematocrit 49.8 % (40-54); Hemoglobin 16.9 g/dL (13.0-16.5); Immature Granulocytes Count 0.020 X10^3/uL (0.0-0.0); Mean Corp Hgb Conc 33.9 g/dL (32-36); Mean Corpuscular Volume 92.2 fL (80-94); Mean Platelet Vol. 10.4 fl (6.2-12.0); NRBC Flagged by Analyzer 0 % (0-5); Platelet Count 267 K/mm3 (150-450); RBC Distribution Width CV 12.4 % (11.6-14.6); RBC Distribution Width SD 41.6 fl (35.1-43.9); Red Blood Count 5.40 M/mm3 (4.6-6.2); White Blood Count 7.7 K/mm3 (4.4-11.0)
[2025-03-17 14:30] LABS: Cholesterol 213 mg/dL (<=200); Low Density Lipoprotein Calc. 136 mg/dL; Triglycerides 170 mg/dL; Very Low Density Lipoprotein 34 mg/dL (5-40); Vitamin D,25 Hydroxy 46.5 ng/mL (30-100); cholesterol:hdl ratio screen 4.92
[2025-03-17 15:00] LABS: AST(SGOT) 22 U/L (<=37); Alanine Aminotransfer ALT/SGPT 28 U/L (<=46); Albumin, Serum 4.6 g/dL (3.5-5.0); Alkaline Phosphatase 115 U/L (40-129); Anion Gap 13 (5-15); BUN 15 mg/dL (4-19); BUN/Creat Ratio 12.0 RATIO (10-20); Calcium,Total 10.5 mg/dL (7.6-11.0); Carbon Dioxide 21.7 mmol/L (21.0-32.0); Chloride 112 mmol/L (98-108); Globulin 2.9 g/dL (2.2-4.2); Glucose 71 mg/dL (70-99); Potassium 4.6 mmol/L (3.3-5.1)
[2025-03-17 15:03] LABS: Lithium 0.74 mmol/L (0.60-1.20)
[2025-03-17 19:19] LABS: Xtra Tube Kwok EXTRA TUBE
== END | disposition home or self-care (01) ==
LOC: POLAB3 11:14
PROVIDERS: PCP Family Medicine Geriatric Medicine; Visit Provider Family Medicine Geriatric Medicine
DX: E78.5 Hyperlipidemia, unspecified (principal); R53.83 Other fatigue; E55.9 Vitamin D deficiency, unspecified; Z79.899 Other long term (current) drug therapy
CPT/HCPCS: 36415; 80053; 80061; 80178; 82306; 83036; 84443; 85025